=== PATIENT | female | born 1935 | race Caucasian/White ===

== ENCOUNTER 2023-08-15 11:36 | Inpatient (IN) | payer MEDICARE, BC, SELFPAY ==
[2023-08-15] VITALS (56 sets, daily range): BP systolic 76–154; BP diastolic 10–117
--- NOTE | 2023-08-15 10:32 | ED.GENMED ---
History of Present Illness
General
Chief Complaint: Seizure
Time Seen by Provider: 08/15/23 10:31
Travel History
Have you had any contact with someone who has COVID-19?: Unable to Answer
Do you have any symptoms of coronavirus? Fever > 100 degrees, chills, cough, shortness of breath, sore throat, loss of taste or smell, muscle aches, or headache?: Unable to Answer
History of Present Illness
History of Present Illness:
HPI: I spoke to EMS for history as the patient currently cannot provide any history as she is unresponsive. EMS indicates that the patient was found to have a focal seizure on the right side. She has not had seizure in years. She apparently has a
history of aneurysmal bleed in the past. EMS gave 2 mg of Ativan prior to arrival as they noted focal seizure activity on the right side. After EMS gave Ativan, she had periods of apnea.
EXAM:
GENERAL: The patient is critically ill in appearance and occasionally appears apneic
HEENT: Slightly dry oral mucosa, some sonorous respirations noted and I am concerned that she is not protecting her airway
CARDIOVASCULAR: No murmurs, normal heart rate, regular rhythm, No chest wall tenderness
PULMONARY: Intermittent apnea, mild respiratory distress, breath sounds are clear and equal
ABDOMEN: Soft with no peritoneal signs, no tenderness
NEUROLOGIC: The patient is minimally responsive, she has some response to pain to sternal rub, she keeps her eyes closed, pupils are 4 mm and reactive bilaterally, she holds the right lower extremity in flexion at the knee and the hip, there is some
myoclonic jerking activity to the right upper extremity greater than right lower extremity, the right upper extremity has increased tone
PSYCHIATRIC: The patient is currently nonverbal
EXTREMITIES: As above
SKIN: No rash, no lesions
TIME OF INITIAL ENCOUNTER: 10:25 AM
NUMBER AND COMPLEXITY OF PROBLEMS ADDRESSED AT THE ENCOUNTER
� Chronic conditions affecting care: Has CUSTOMS BROKER shunt, seizure, aneurysm
� Acute Exacerbation and/or Progression of Chronic Illness: This is an acute problem but has had less severe seizures in the past
� Differential Diagnosis includes: Breakthrough seizure, intracranial hemorrhage, hypoglycemia, UTI/sepsis
AMOUNT AND/OR COMPLEXITY OF DATA TO BE REVIEWED AND ANALYZED
� I performed an independent evaluation of and my interpretation is:
EKG: Sinus 53, leftward axis deviation, nonspecific ST abnormality
CT: CT imaging shows no acute abnormality�stable postop changes noted
X-rays: I personally reviewed chest x-ray, ET tube above the nickie appropriately positioned, aortic calcification noted, no consolidation on x-ray
Laboratory Studies: White count normal, pH 7.5/pCO2 23/PaO2 170, renal function normal, urinalysis shows no sign of infection
Other:
� Review of other/old records: I reviewed records, the patient was seen as an ER patient after generalized tonic-clonic seizure activity in t that time on Vimpat and Briviact and is known to [facility] that time in
November 2021 she was discharged home.
� Clinical information was obtained by an independent historian: I spoke to EMS upon arrival.
� Prescriptions/Medications Considered but not given:
� Further testing considered but not performed:
RISK OF COMPLICATIONS AND/OR MORBIDITY OR MORTALITY OF PATIENT MANAGEMENT
� Social determinants of health affecting care:
� Discussion with other providers: The patient was seen by Dr. Killian in the ED. He is arranging for EEG. Hospitalist for admission he is arranged for EEG. Hospitalist for admission
� Escalation of care including admission/observation vs risk of discharge considered: Upon arrival, the patient had a GCS of 6 upon arrival (1+1+4). I was concerned about her protecting her airway. Decision was made to intubate
to protect her airway in the setting of a decreased GCS. She was given IV Vimpat and Broviac.
Past History
Past History
ED Past Medical History: HTN, Seizures, Hypothyroidism, Other (Hyponatremia), Other (Brain aneurysm, with subarachnoid hemorrhage in 2002) and Other (Osteoarthritis)
ED Past Surgical History: Brain (Brain aneurysm clipping, CUSTOMS BROKER shunt on the left; bilateral craniotomies) and Cholecystectomy
Social History
Tobacco: Non-smoker
Alcohol: None
Personal:
Living: with family
Employment: Retired
Family History
Family History: Other (reviewed and Noncontributory)
Phy Exam
Physical Exam
Physical Exam:
See HPI
Course
Orders/Labs/Results
Orders:
Orders
08/15/23 10:29
Fentanyl Citrate/Pf [Sublimaze] 75 mcg IV NOW STA
08/15/23 10:30
Propofol 1,000,000 Mcg/100 ml [Diprivan] 1,000,000 mcg in 100 ml IV PER PROTOCOL
08/15/23 10:31
CT Head W/o Iv Contrast Urgent
Comment:
Reason For Exam: seizure; h/o SAH
08/15/23 10:32
CT Head & Neck Angio W/wo IV Urgent
Comment:
Reason For Exam: seizure; h/o SAH
08/15/23 10:33
Lacosamide [Vimpat] 200 mg IV NOW STA
08/15/23 10:34
CR Chest Portable - 1 View Urgent
Comment:
Reason For Exam: post intubation
Reason Study Needs to be Portable: Patient Unstable
08/15/23 10:37
Basic Metabolic Panel Urgent
Complete Blood Count/With Diff Urgent
08/15/23 10:45
EKG [Electrocardiogram (*1)] Urgent
Reason for Study: Other
Other Reason for Exam: Unresponsive
EKG- Treatment ONCE
08/15/23 10:50
Etomidate [Amidate] 40 mg .ROUTE .STK-MED ONE
Succinylcholine Chloride [Succinylcholine] 200 mg .ROUTE .STK-MED ONE
08/15/23 10:56
Straight cath- Treatment ONCE
0.9% Sodium Chloride 1000 ml [Nss] 1,000 ml IV BOLUS
08/15/23 11:00
Brivaracetam [Briviact] 100 mg IV NOW STA
Lacosamide [Vimpat] 200 mg IV NOW STA
08/15/23 11:01
Continuous EEG monitoring IP Urgent
Reason for Study: Status
08/15/23 11:19
Admit/Transfer Patient As Directed
Co-Sign Provider:
Level of Care: Inpatient admission
Assign to:: ICU
Physician / Group: Hospitalist
Diagnosis: Unresponsiveness
Reason for Hospitalization: .
Expected length of stay greater than two midnights?: Yes
ELOS- Estimated Length of Stay in days: 3
I certify the patient meets the requirements for IP care: Yes
08/15/23 11:47
Urinalysis Reflex To Culture Urgent
Date Specimen was Collected: 08/15/23
Time Specimen was Collected: 11:46
08/15/23 12:10
Consult Director Of Financial Aid [Director Of Financial Aid Consult] Routine
Consulting Provider: Sandor Roy
Was physician already notified: Yes
Reason for consult: Seizure
Consult Neurology [NEUROLOGY CONSULT] Routine
Consulting Provider: Chevy Killian
Was physician already notified: Yes
Reason for consult: Seizure
VTE Contraindication Routine
VTE Mechanical Device Contraindication: Medical Contraindication
Pharmocologic Contraindication: Treatment not tolerated
08/15/23 20:00
Brivaracetam [Briviact] 50 mg IV BID
Lacosamide [Vimpat] 200 mg IV Q12H
Abnormal Lab Results
08/15/23
10:37
MCHC 32.3 L g/dL
(33.0-37.0)
RDW 15.3 H %
(11.5-14.5)
MPV 11.7 H fL
(7.4-10.4)
Absolute Neuts (auto) 6.8 H 10^3/uL
(1.4-6.5)
Neutrophils % 79.7 H %
(42.2-75.2)
Lymphocytes % 13.8 L %
(20.5-51.1)
Chloride 108 H mmol/L
(98-107)
BUN 24 H mg/dl
(7-17)
08/15/23 10:37
08/15/23 10:37
Vital Signs
Initial and Last Documented VS:
Initial Vital Signs
Pulse Resp BP Pulse Ox
84 13 136/10 99
08/15/23 10:25 08/15/23 10:25 08/15/23 10:25 08/15/23 10:25
Last Documented Vital Signs
Temp Pulse Resp BP Pulse Ox
92.4 F L 57 14 131/72 99
08/15/23 12:31 08/15/23 12:45 08/15/23 12:45 08/15/23 12:45 08/15/23 13:13
Procedures
Intubations
Procedure completed by: De, Dr. Vicente
Method of Intubation: glidescope
Tube size (cm): 7.5
Placement confirmed by: CXR and capnography
Breath sounds after intubation: equal
Intubation complications: no complications
*Critical Care Note
Total Time (30-74mins, 75-104mins- exclusive of procedures): Not Applicable
ED Attending Note
-
Portions of this chart may have been created with voice recognition software.� Occasional wrong word or��sound alike� substitutions may have occurred due to the inherent limitations of voice recognition software.
Discharge Plan
Departure
Patient Disposition: Admit
Date of Disposition: 08/15/23
Time of Disposition: 11:17
Presentation/result/management discussed w/ accepting MD/DO: Hospitalist
Discharge Problem:
Breakthrough seizure
Interventions
Interventions:
*Risk Screen - Suicide Last Done: 08/15/23 12:00
*General Assessment Last Done: 08/15/23 11:01
*Neglect/Abuse Screening Last Done: 08/15/23 11:01
ED- Fall Risk Assessment Last Done: 08/15/23 11:01
*ED COVID-19 Vaccine History Last Done: 08/15/23 11:01
*Nursing Disposition Last Done: 08/15/23 12:00
ED- Cardiac Assessment Last Done: 08/15/23 11:01
ED- Neurological Assessment Last Done: 08/15/23 11:01
ED- Pulmonary Assessment Last Done: 08/15/23 11:01
Discharge Date and Time
Discharge Date/Time: 08/15/23 12:22
[2023-08-15] MEDS: DIPRIVAN 100 IV (10:40)
[2023-08-15] MEDS: SUBLIMAZE 75 MCG IV (10:45)
[2023-08-15] MEDS: VIMPAT 200 MG IV ×3 (10:47→19:29)
[2023-08-15 10:50] LABS: % Basophils 0.1 % (0-2); % Eosinophils 0.4 % (0-6); % Immature Granulocytes 0.2 % (0-0.5); % Lymphocytes 13.8 % (20.5-51.1); % Monocytes 5.8 % (1.7-9.3); % Neutrophils 79.7 % (42.2-75.2); Absolute Lymphocytes 1.2 10^3/uL (1.2-3.4); Absolute Monocytes 0.5 10^3/uL (0.1-0.6); Absolute Neutrophils 6.8 10^3/uL (1.4-6.5); Hematocrit 40.3 % (37.0-47.0); Mean Corp Hgb Conc. 32.3 g/dL (33.0-37.0); Mean Corpuscular Volume 93.1 fL (81.0-99.0); Mean Platelet Volume 11.7 fL (7.4-10.4); Nucleated Red Blood Cells % 0 %; Platelet Count 187 10^3/uL (130-400); Red Blood Cell Count 4.33 10^6/uL (4.20-5.40); Red Cell Dist. Width 15.3 % (11.5-14.5); White Blood Cell Count 8.5 10^3/uL (4.8-10.8)
--- NOTE | 2023-08-15 11:03 | CON.NEURO4 ---
Consultation - Neurology 4
-
CONSULTING PHYSICIAN: Justo Killian
REFERRING PHYSICIAN: ER
DICTATED BY: Justo Killian
DATE/TIME OF REQUEST: 08/15/23
DATE/TIME OF CONSULTATION: 08/15/23
Reason for Consultation: Status epilepticus
History of Present Illness:
Patient is a 88-year-old woman with a past no history of aneurysmal subarachnoid hemorrhage requiring clipping, craniotomy and MANGLE CATCHER shunt, epilepsy presented to hospital with altered mental status and right-sided focal seizure activity. History
obtained via patient's son and [id number] as well as ER physician and EMS. Patient lives with her and did not seem to be quite at her baseline over the past 2 days sometimes seeming very out of it and sleeping poorly responsive but
then sometimes coming back into her normal baseline. This morning she had a witnessed right-sided seizure activity and was given 2 mg IV lorazepam by EMS and was brought into the ED had significant lethargy, apnea and encephalopathy with still
right arm and leg myoclonic seizure activity seen. She was intubated and given dose of IV lacosamide started on propofol infusion.
Patient's son relates that after the aneurysmal subarachnoid hemorrhage which occurred around 2002 the patient had a long recovery to perhaps 60% of her previous baseline. He reports that at face value the patient seems to interact and talk
normally but would be able to be discerned that she has significant cognitive deficits after having more than 10 minutes talking with her.
Patient has been very consistent with taking antiseizure medications 25 mg brivaracetam twice a day as well as lacosamide 150 mg twice a day. Patient has not had any generalized seizures in some time and more than a year two, but there have been
short instances of jerking-like activity which can happen every couple months that the patient's family was concerned represent small focal seizures.
Patient had been on some antibiotics recently she had apparently an equivocal urinalysis but had some symptoms of urinary frequency recently. Reviewing the chart as well as per the patient's family the patient does have a history of a tendency
towards frequent urinary tract infections.
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
Surgical History: MANGLE CATCHER shunt, craniotomy and aneurysm clipping after aneurysm rupture, cholecystectomy
Family History: Non-contributory
Social History: Patient is , lives with her , no tobacco or alcohol use
Review of Symptoms:
Unable to obtain with intubation
Physical Exam:
Elderly woman, intubated, no head or neck trauma, ET tube in place, no neck masses or meningismus, heart rate regular, breath sounds present bilaterally, abdomen soft non tender, no lower extremity edema
Neurologic Examination
Mental Status: Sedated, comatose, E1V1V1
Cranial Nerves: Pupils 2 mm non reactive to light bilaterally, resting gaze midline, face grossly symmetric, corneal reflex and cough reflex intact
Motor/sensory: No movement to sternal rub or pain in any extremity
Reflexes: Diminished throughout
Coordination: Unable to assess
Gait: Unable to assess
Neuro Imaging: CT head with MANGLE CATCHER shunt in place in right lateral ventricle, encephalomalacia in bifrontal lobes and s/p craniotomy, aneurysm clip seen in basal cisterns
Impressions
1. Status epilepticus, underlying epilepsy after aneurysmal rupture and subarachnoid hemorrhage
2. 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
3. History aneurysmal rupture SAH s/p craniotomy and slipping of aneurysm, required MANGLE CATCHER shunt
4.
Recommendations:
1. Total dose 400 mg IV Lacosamide and 100 mg Brivaracetam now
2. Brivaracetam 50 mg q12hr and Lacosamide 200 mg q12hr both IV, pursue increased doses from home doses for the time being
3. Continuous EEG monitoring
4. Would check UA and urinalysis given a history of UTI's, these can precipitate seizures in those with underlying epilepsy
5. ICU level of care
6. Neurologic checks
7. Goal normotension
8. Would hold home quetiapine
Total ICU time = 60 minutes
Discussed patient care with: Patient's family, ER physician
Home Medications
-
Home Medications
docusate sodium 100 mg capsule 100 mg PO DAILY@1700 Constipation 03/26/17
metoprolol succinate 25 mg tablet,extended release 24 hr 25 mg PO DAILY@1700 Blood pressure 03/26/17
polyvinyl alcohol-povidone (PF) 1.4 %-0.6 % eye drops in a dropperette (Refresh Classic (PF)) 1 drops BOTH EYES BID dry eyes 03/26/17
quetiapine 25 mg tablet 25 mg PO HS Mental Health/Anxiety 03/26/17
trazodone 50 mg tablet 12.5 mg PO HS Mental Health/Anxiety 03/26/17
brivaracetam 25 mg tablet (Briviact) 25 mg PO BID Seizures 09/22/21
cetirizine 10 mg capsule (Zyrtec) 10 mg PO DAILY@1700 Allergies 09/22/21
lacosamide 150 mg tablet (Vimpat) 150 mg PO HS Seizures 09/22/21
melatonin 3 mg tablet 3 mg PO HS Sleep 09/22/21
amlodipine 5 mg tablet 5 mg PO DAILY Blood pressure 11/27/21
calcium carbonate 500 mg PO DAILY Supplement 11/27/21
fluticasone propionate 50 mcg/actuation nasal spray,suspension 1 spray intranasal DAILY Allergies 11/27/21
lacosamide 100 mg tablet (Vimpat) 100 mg PO DAILY Seizures 11/27/21
levothyroxine 75 mcg tablet 75 mcg PO DAILY@16 Thyroid 11/27/21
sertraline 50 mg tablet 50 mg PO DAILY Mental Health/Anxiety 11/27/21
Allergies
-
Allergies
Allergy/AdvReac Type Severity Reaction Status Date / Time
phenytoin [From Dilantin] Allergy Unknown Unknown Verified 09/22/21 10:59
ciprofloxacin [From Cipro] Allergy Unknown Verified 09/22/21 10:59
Penicillins Allergy Unknown Verified 09/22/21 10:59
vancomycin Allergy Vomiting Verified 09/22/21 10:59
raw onions Allergy sensitivity Uncoded 09/22/21 10:59
Vital Signs / Labs
-
Vital Signs and Labs:
Pulse Resp BP Pulse Ox
90 25 154/74 99
08/15/23 10:31 08/15/23 10:31 08/15/23 10:31 08/15/23 10:31
08/15/23 10:37
08/15/23 10:37
08/15/23
10:37
MCHC 32.3 L
RDW 15.3 H
MPV 11.7 H
Absolute Neuts (auto) 6.8 H
Neutrophils % 79.7 H
Lymphocytes % 13.8 L
Chloride 108 H
BUN 24 H
[2023-08-15 11:04] LABS: Blood Urea Nitrogen 24 mg/dl (7-17); Calcium 8.8 mg/dl (8.4-10.2); Carbon Dioxide 23 mmol/L (22-30); Chloride 108 mmol/L (98-107); Glucose 99 mg/dl (70-99); Sodium 139 mmol/L (135-145); eGFR > 60.00
[2023-08-15] MEDS: NSS 1000 IV ×2 (11:17→12:39)
[2023-08-15] MEDS: BRIVIACT 100 MG IV (11:18)
--- NOTE | 2023-08-15 11:18 | HPS.HSE ---
Family Physician
-
Family Physician:
Chief Complaint
-
Unresponsiveness with seizure
History of Present Illness
88-year-old female had seizure at home. EMT was called and reported of right-sided seizure noted. In the ER, she was minimally responsive or unresponsive. ER doctor intubated the patient for airway protection. Patient was given lorazepam. Stat
scan of the head showed no acute abnormalities no history of fever.. Or acute illness at home. Caregiver reported that she noticed decline in last 2 days with ambulation. Also patient tends to have a swallowing problem when she is not feeling
well.
Medical History
Past Medical History
Past Medical History: Reports Other (Thyroid disease, seizure, hypertension, history of brain aneurysm status post shunt, arthritis, history of stroke, history of DVT)
Past Surgical History: Reports Other (No recent major surgery)
Social History
Unable to obtain full social history at this time due to: Patient Intubation
Family History
Family History: Not pertinent
Allergies / Home Medications
Allergies reflects when Allergies were last updated in [facility].
Home Medications with original date entered in [facility]
Allergy/Medication List:
Allergies
Allergy/AdvReac Type Severity Reaction Status Date / Time
phenytoin [From Dilantin] Allergy Unknown Unknown Verified 09/22/21 10:59
ciprofloxacin [From Cipro] Allergy Unknown Verified 09/22/21 10:59
Penicillins Allergy Unknown Verified 09/22/21 10:59
vancomycin Allergy Vomiting Verified 09/22/21 10:59
raw onions Allergy sensitivity Uncoded 09/22/21 10:59
Home Medications
docusate sodium 100 mg capsule 100 mg PO BID Constipation 03/26/17
metoprolol succinate 25 mg tablet,extended release 24 hr 25 mg PO QPM Blood pressure 03/26/17
trazodone 50 mg tablet 12.5 mg PO HS Mental Health/Anxiety 03/26/17
brivaracetam 25 mg tablet (Briviact) 25 mg PO BID Seizures 09/22/21
cetirizine 10 mg capsule (Zyrtec) 10 mg PO QPM Allergies 09/22/21
lacosamide 150 mg tablet (Vimpat) 150 mg PO HS Seizures 09/22/21
melatonin 3 mg tablet 3 mg PO HS Sleep 09/22/21
amlodipine 5 mg tablet 5 mg PO DAILY Blood pressure 11/27/21
calcium carbonate 500 mg PO DAILY Supplement 11/27/21
fluticasone propionate 50 mcg/actuation nasal spray,suspension 1 spray intranasal BID Allergies 11/27/21
lacosamide 100 mg tablet (Vimpat) 100 mg PO DAILY Seizures 11/27/21
acetaminophen 325 mg tablet (Tylenol) 650 mg PO Q6HPRN PRN mild pain 08/15/23
cefuroxime axetil 250 mg tablet 250 mg PO BID 08/15/23
conjugated estrogens 0.625 mg/gram vaginal cream (Premarin) 1 applic vaginal MOTH 08/15/23
latanoprost 0.005 % eye drops 1 drp BOTH EYES HS 08/15/23
levothyroxine 50 mcg tablet 50 mcg PO QPM 08/15/23
lorazepam 0.5 mg tablet 0.5 mg PO DAILYPRN PRN seizures 08/15/23
methenamine hippurate 1 gram tablet 1 g PO BID 08/15/23
sertraline 25 mg tablet 25 mg PO DAILY 08/15/23
Review of Systems
-
Unable to obtain full review of systems at this time due to: Patient Intubation
Physical Exam
Vital Signs
Vital Signs
Pulse Resp BP Pulse Ox
63 15 105/68 100
08/15/23 11:15 08/15/23 11:15 08/15/23 11:13 08/15/23 11:15
Physical Exam
General: Intubated
HEENT: Atraumatic
Respiratory: Clear; No Wheezes
Cardiac: S1/S2
GI: Soft and Non Distended
Genito-urinary: No Bloody Urine or Vaughan
Musculoskeletal: No Clubbing, No Cyanosis and No Edema
Skin: No Jaundice
Neuro: Sedated
Psych: No Agitated
Laboratory Results
-
08/15/23 10:37
08/15/23 10:37
Laboratory Results
Total Bilirubin Cancelled 08/15/23 10:37
AST Cancelled 08/15/23 10:37
ALT Cancelled 08/15/23 10:37
Alkaline Phosphatase Cancelled 08/15/23 10:37
Impression/Plan
-
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
#Acute encephalopathy due to seizure /unresponsiveness
Patient was intubated for airway protection in the emergency room. No documented hypoxia or respiratory distress
Admit the patient to ICU
No evidence of acute infection with lack of fever or leukocytosis. No history of headaches
Scan of the head no acute abnormalities
ABG and chest x-ray
Continue to manage vent setting and wean as possible
Cardiac monitoring
Supportive care with IV fluid, aspiration precautions
Discussed with neurologist, will continue with lacosamide and brivaracetam, add as needed lorazepam
For now to do continuous electroencephalogram
Discussed with photographic platemaker and neurologist
Appreciate help
# Hypothermia, likely combination of medication induced and encephalopathy
Patient has had history of hypothermia in the past
#Essential hypertension
Keep normotensive. Add as needed hydralazine
#Hypothyroidism
- No changes intended
# GI prophylaxis & DVT prophylaxis
Total time spent to see the patient, examine the patient on the floor, review data and lab results, discuss treatment plan with ER doctor, consultants, family, nursing staff around 75 minutes
--- NOTE | 2023-08-15 12:10 | CON.INTV ---
Consultation
Consultation Request
Date/Time Consultation Requested: 08/15/2023
Date/Time Consultation Performed: 08/15/2023
Performing Provider: Dr. Sandor Cary
Reason for Consultation: Hypercapnic respiratory failure-seizures
Medical History
-
History of Present Illness:
88-year-old woman who came to the emergency room intubated after having a witnessed seizure per EMS. Unable to provide history. Records reviewed. Patient currently arrives to the ICU intubated on mechanical ventilation. Sedated.
Record reviewed patient has history of SPLITTER TENDER shunt with prior seizures in the past.
Patient received antiepileptic drugs IV in the emergency room.
Upon arrival to the critical care unit she is sedated on propofol. Occasionally moving extremities.
To my exam no evidence for active seizures.
Prior records were reviewed. Last time seen in our hospital in 2021.
Will discuss with family when available
Past Medical History
Past Medical History: Other (See assessment and plan section)
Social History
Tobacco: Non-smoker
Alcohol: None
Personal:
Employment: Retired
Family History
Family History: Unable to Obtain
Allergies / Home Medications
Allergies
Allergy/AdvReac Type Severity Reaction Status Date / Time
phenytoin [From Dilantin] Allergy Unknown Unknown Verified 09/22/21 10:59
ciprofloxacin [From Cipro] Allergy Unknown Verified 09/22/21 10:59
Penicillins Allergy Unknown Verified 09/22/21 10:59
vancomycin Allergy Vomiting Verified 09/22/21 10:59
raw onions Allergy sensitivity Uncoded 09/22/21 10:59
Home Medications
�Medication �Instructions �Recorded �Confirmed �Last Taken �Type
docusate sodium 100 mg capsule 100 mg PO BID Constipation 03/26/17 08/15/23 08/14/23 History
metoprolol succinate 25 mg 25 mg PO QPM Blood pressure 03/26/17 08/15/23 08/14/23 History
tablet,extended release 24 hr
trazodone 50 mg tablet 12.5 mg PO HS Mental Health/Anxiety 03/26/17 08/15/23 08/14/23 History
brivaracetam 25 mg tablet 25 mg PO BID Seizures 09/22/21 08/15/23 08/14/23 History
(Briviact)
cetirizine 10 mg capsule (Zyrtec) 10 mg PO QPM Allergies 09/22/21 08/15/23 08/14/23 History
lacosamide 150 mg tablet (Vimpat) 150 mg PO HS Seizures 09/22/21 08/15/23 08/14/23 History
melatonin 3 mg tablet 3 mg PO HS Sleep 09/22/21 08/15/23 08/14/23 History
amlodipine 5 mg tablet 5 mg PO DAILY Blood pressure 11/27/21 08/15/23 08/14/23 History
calcium carbonate 500 mg PO DAILY Supplement 11/27/21 08/15/23 08/14/23 History
fluticasone propionate 50 1 spray intranasal BID Allergies 11/27/21 08/15/23 08/14/23 History
mcg/actuation nasal
spray,suspension
lacosamide 100 mg tablet (Vimpat) 100 mg PO DAILY Seizures 11/27/21 08/15/23 08/14/23 History
acetaminophen 325 mg tablet 650 mg PO Q6HPRN PRN mild pain 08/15/23 08/15/23 08/14/23 History
(Tylenol)
cefuroxime axetil 250 mg tablet 250 mg PO BID 08/15/23 08/15/23 08/14/23 History
conjugated estrogens 0.625 mg/gram 1 applic vaginal MOTH 08/15/23 08/15/23 08/12/23 History
vaginal cream (Premarin)
latanoprost 0.005 % eye drops 1 drp BOTH EYES HS 08/15/23 08/15/23 08/14/23 History
levothyroxine 50 mcg tablet 50 mcg PO QPM 08/15/23 08/15/23 08/14/23 History
lorazepam 0.5 mg tablet 0.5 mg PO DAILYPRN PRN seizures 08/15/23 08/15/23 Unknown History
methenamine hippurate 1 gram tablet 1 g PO BID 08/15/23 08/15/23 08/14/23 History
sertraline 25 mg tablet 25 mg PO DAILY 08/15/23 08/15/23 08/14/23 History
Review of Systems
-
Unable to Obtain full review of systems at this time due to: Acuity and Patient Intubation
Vitals / Labs / Diagnostic Testing
Vital Signs
Pulse Resp BP Pulse Ox
63 15 105/68 100
08/15/23 11:15 08/15/23 11:15 08/15/23 11:13 08/15/23 11:15
Lab Data
08/15/23 10:37
08/15/23 10:37
Diagnostic Testing:
Physical Exam
-
HEENT: Normocephalic and Other (ET tube in place,)
Cardiovascular: S1/S2
Respiratory: Clear
GI: Soft and Non Distended
Neurology: Other (Bilateral small pupils. Nonreactive at this point. Occasionally moving extremities on sedation. No nystagmus.) and Other (Sedated, unresponsive, neck is supple.)
Skin: Warm
General: Respiratory Distress (n)
Assessment
-
Abrupt onset mental status changes/? Witnessed seizure by EMS per records.
Respiratory failure for airway protection: Intubated and on mechanical ventilation.
CT head without contrast 08/15/2023: No acute abnormalities. Stable postoperative changes including bilateral frontotemporal craniotomies with underlying volume loss.
Chest x-ray 08/15/2023: No acute abnormalities.
Conditions present prior to admission:
Prior records:
Hypertension
Seizure disorder: on Brivaracetam
Hypothyroidism
History of brain aneurysm with subarachnoid hemorrhage 2002
Osteoarthritis
Brain aneurysm status post clipping
SPLITTER TENDER shunt
Bilateral craniotomies
Cholecystectomy
Assessment and plan:
Critically ill, intubated and on mechanical ventilation. ? Breakthrough seizure. No history available at this point.
So far no evidence for acute neurological event. CT head negative for bleeding. Prior postcraniotomy changes.
No evidence for infection
Will discuss with family past history. Unclear whether patient was taking her medications or there was any symptoms preceding current event
-
Neurology has been consulted: IV antiepileptic drugs have been given
EEG later today.
-
Monitor for fevers. No leukocytosis.
Hemodynamically stable
Cultures were sent we will follow
Hold any antibiotic
-
Mechanical ventilation settings reviewed
Pulmonary mechanics acceptable peak pressure 17.
FiO2 40%/tidal volume 400/14/+5
Chest x-ray without infiltrate
ET tube without secretion
Obtain ABG and adjust mechanical ventilation as necessary
Will continue support until seizures are controlled.
If no further seizures then will attempt a spontaneous breathing trial later today.
-
Sedation with propofol-minimize.
Patient occasionally moving extremities.
Fentanyl as needed
-
Patient on sinus bradycardia. Not hypotensive.
Check TSH
Hold oral antihypertensive for now. On Betablockers
Okay to restart sertraline and trazodone as she was taking in the outpatient setting once NG tube is placed
-
N.p.o. overnight
Head of the bed elevation
Orogastric tube.
-
IV fluids for maintenance-normal saline at 80 cc an hour.
-
Glycemic control per protocol blood sugar 140-180. Insulin as needed
-
DVT prophylaxis with subcu Lovenox
Protonix for GI prophylaxis
-
Critical care statement: A total of 38 minutes of critical care time was provided for this patient today. This includes management of unstable vital signs, evaluation of the patient at bedside, reviewing the patient's pertinent medical records
including ventilator settings, arterial blood gases, radiographs, microbiology, laboratory evaluations and discussion with primary team, critical care nursing, and respiratory therapy.
[2023-08-15 12:15] LABS: Urine Albumin Trace (Neg - Trace); Urine Bilirubin Negative (Negative); Urine Character Clear (Clear); Urine Color Yellow; Urine Glucose Negative (Negative); Urine Ketone Negative (Negative); Urine Leukocyte Negative (Negative); Urine Nitrite Negative (Negative); Urine Occult Blood Negative (Negative); Urine Specific Gravity 1.005 (<1.030); Urine Urobilinogen Negative (Neg - 1+)
[2023-08-15 12:50] LABS: B.E. -2.4 mmol/L; HCO3 18.8 mmol/L (21-28); O2 Saturation % 99.7 % (94-98); PCO2 23 mmHg (32-35); PO2 170 mmHg (83-108); pH 7.52 (7.35-7.45)
--- NOTE | 2023-08-15 13:33 | CM ---
CM following re: discharge planning.
Reviewed pt's chart, met with pt. 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
Pt is an 88 year old female, admitted with primary dx of Seizure. Pt intubated on the field by EMS, admitted to ICU intubate and sedated. Per son, pt lives with in a 2SH, 2 steps to enter, has 4 supportive children and has 24/7 caregiver
services due to impaired memory and caregiver services provided by [facility]. Pt's son described the pt as independent with functional ability, does not use any mobile devices and has impaired short term memory. Pt's son expressed his desire
that pt will return back home with caregiver services and family support.
PCP: Johana Bullock
Pharmacy: [facility].
D/C plan: uncertain at this time and will depend on pt's progress.
CM will follow with discharge plan updates as hospitalization progresses
[2023-08-15 13:48] LABS: INR 0.98
[2023-08-15 13:49] LABS: APTT 34.6 Sec (23.4-35.0)
--- NOTE | 2023-08-15 14:00 | PTCARENOTE ---
PT received via stretcher from ED, PT unresponsive, responsive to deep pain, pupils 1 pinpoint, non reactive, PT tense with movement or care, NSR 1st degree AV block, no edema, +pulses, cool to the touch, unable to obtain temp, placed rectal probe,
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
infiltrated upon arrival to ICU, removed and pressure dressing applied, unable to find a new IV site, received order to place IV in foot, # 20 INT placed right ankle, family at bedside updated
[2023-08-15 14:25] LABS: TSH 4.62 uIU/ml (0.47-4.68)
--- NOTE | 2023-08-15 14:42 | PTCARENOTE ---
Assessment of PT, Pupils 2 sluggish, family at bedside and updated, Propofol decreased to 10 mcg/min, attempting to wean sedation off for possible intubation
--- NOTE | 2023-08-15 15:18 | PTCARENOTE ---
PT with more movements noted, not follow commands at this time, Propofol decreased to 5 mcg/min, will continue to wean
--- NOTE | 2023-08-15 15:30 | PTCARENOTE ---
Propofol infusion off, PT did squeeze this nurse's hand, unsure if it was following my command or involuntary, unable to illicit response second time
--- NOTE | 2023-08-15 15:56 | PTCARENOTE ---
PT failed wean trial, placed back on 10 mcg/min Propofol, PT remains unresponsive, withdrawal to painful stimuli, son remains at bedside
[2023-08-15] MEDS: LOVENOX 40 MG SC (17:25)
--- NOTE | 2023-08-15 17:44 | PTCARENOTE ---
Assessment remains unchanged, son at bedside, respiratory culture obtained and sent for culture, PT rectal temp @ 96.8
[2023-08-15] MEDS: BRIVIACT 50 MG IV (19:27)
--- NOTE | 2023-08-15 20:00 | PTCARENOTE ---
on assessment pt moving all extremities, rass -2, pt responds to deep suctioning, +gag, impaired corneal, SR, 7.5 EET, thick mcdonough secretions, lungs diminished and course, NPO, purwick in place, repositioned q2h, SON called and was updated, see work
list
[2023-08-16] VITALS (55 sets, daily range): BP systolic 90–173; BP diastolic 44–135
--- NOTE | 2023-08-16 | PTCARENOTE ---
pt got a more restless, increased propofol per orders, no others changes at this time, pt was suctions and repositioned q2h.
[2023-08-16] MEDS: NSS 1000 IV (00:32)
[2023-08-16] MEDS: DIPRIVAN 100 IV (02:37)
[2023-08-16] MEDS: NSS 500 IV (03:57)
--- NOTE | 2023-08-16 04:00 | PTCARENOTE ---
Overnight pt was restless and setting off the vent/coughing, increased prop gtt per orders, not much urine noted on pad or in purwick, ICU PEDICURIST made aware and fluids ordered, no other changes noted, repositioned q2h.
[2023-08-16 04:44] LABS: B.E. -3.5 mmol/L; HCO3 19.9 mmol/L (21-28); O2 Saturation % 99.7 % (94-98); PCO2 30 mmHg (32-35); PO2 110 mmHg (83-108); pH 7.43 (7.35-7.45)
[2023-08-16 04:44] LABS: Hematocrit 32.7 % (37.0-47.0); Hemoglobin 11.2 g/dL (12.0-16.0); Mean Corp Hgb Conc. 34.3 g/dL (33.0-37.0); Mean Corpuscular Hgb 30.4 pg (27.0-31.0); Mean Corpuscular Volume 88.6 fL (81.0-99.0); Mean Platelet Volume 11.4 fL (7.4-10.4); Platelet Count 172 10^3/uL (130-400); Red Blood Cell Count 3.69 10^6/uL (4.20-5.40); Red Cell Dist. Width 15.5 % (11.5-14.5)
[2023-08-16 04:46] LABS: O2 Therapy VENT
[2023-08-16 05:06] LABS: Blood Urea Nitrogen 19 mg/dl (7-17); Carbon Dioxide 20 mmol/L (22-30); Chloride 114 mmol/L (98-107); Glucose 84 mg/dl (70-99); Potassium 3.8 mmol/L (3.5-5.1); Sodium 139 mmol/L (135-145); eGFR 54.87
--- NOTE | 2023-08-16 07:48 | EEGC.RPT ---
Continuous EEG Report
Recording
Start Date of Data Reviewed: 08/15/23
Start Time of Data Reviewed: 13:25
End Date of Data Reviewed: 08/16/23
End Time of Data Reviewed: 07:00
Type of EEG: Continuous
Study Sequence: Continuation of ongoing Study
Electrocardiogram: Unremarkable
Report
24 HOUR CONTINUOUS EEG REPORT
EEG INTERPRETATION:
Abnormal EEG showing diffuse slowing as well as focal slowing on the left frontal lobe which can indicate structural abnormality in that area. No seizures seen.
CLINICAL CORRELATION:
Moderate diffuse slowing non-specific indicating cerebral dysfunction, left frontal lobe focal slowing most likely attributable to history of previous brain injury from aneurysmal rupture given findings of bifrontal encephalomalacia on CT head.
Clinical correlation is advised.
METHODS:
A 21 channel digitized electroencephalogram (EEG) was performed at the bedside in the intensive care unit.� The 10/20 international system of electrode placement was used.� ECG was monitored.� Video was recorded. Study lasted 17 hours 35 minutes
ELECTROENCEPHALOGRAPHER IMPRESSION(S):
Quality
Good
Background
Mixed medium amplitude dleta and theta frequencies
No normal posterior dominant rhythm seen
Asymmetry of background with focal slowing in left frontal region
Sleep
Drowsiness demonstrated by attenuation of the background rhythm
ECG:
Normal sinus rhythm
Abnormal EEG activity:
No seizures seen, diffuse slowing is seen.
[2023-08-16] MEDS: NSS (PRESERVATIVE FREE) 10 ML IV (07:57)
[2023-08-16] MEDS: BRIVIACT 50 MG IV ×2 (07:57→19:34)
[2023-08-16] MEDS: PROTONIX IV 40 MG IV (07:57)
[2023-08-16] MEDS: VIMPAT 200 MG IV ×2 (07:58→19:34)
--- NOTE | 2023-08-16 08:16 | W.PN.HOSP.TC ---
Today's Communication/Plan
-
.
Supportive care
Ant-seizure medications, continue
Hope to extubate today
Assessment / Plan
Assessment / Plan
Physical Exam
General: Intubated
HEENT: Atraumatic
Respiratory: Clear; No Wheezes
Cardiac: S1/S2
GI: Soft and Non Distended
Genito-urinary: No Bloody Urine or Vaughan
Musculoskeletal: No Clubbing, No Cyanosis and No Edema
Skin: No Jaundice
Neuro: Sedated
Psych: No Agitated
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
#Acute encephalopathy due to seizure /unresponsiveness
Patient was intubated for airway protection in the emergency room. No documented hypoxia or respiratory distress
EEG is resulted and with 24 hours monitoring, no seizure activity
Hopefully can extubate today
Supportive care with IV fluid, aspiration precautions
Normal TSH
ABG this morning 7.4/30/110 on then vent support
Continue with lacosamide and brivaracetam, add as needed lorazepam
Appreciate help
# Hypothermia, likely combination of medication induced and encephalopathy
Patient has had history of hypothermia in the past
#Essential hypertension
Keep normotensive. Add as needed hydralazine
#Hypothyroidism
- No changes intended
# GI prophylaxis & DVT prophylaxis
Total time spent to see the patient, examine the patient on the floor, review data and lab results, discuss treatment plan with patient, nursing staff around 55 minutes
Anticipated Discharge: > 48 hours
Subjective/Interval History
-
Date of Service: August 16, 2023
Afebrile
No hypotension noted
Objective Data
-
Labs:
Laboratory Results
06/14/24 06/14/24
04:13 04:38
WBC 8.0
Hgb 11.2 L
Hct 32.7 L
Plt Count 172
HCO3 19.9 L
Sodium 139
Potassium 3.8
Chloride 114 H
Carbon Dioxide 20 L
BUN 19 H
Creatinine 1.0
Glucose 84
Calcium 8.0 L
Vital Signs:
Vital Signs
Temp Pulse Resp BP Pulse Ox
97.1 F 78 13 127/55 98
08/16/23 07:25 08/16/23 07:50 08/16/23 07:50 08/16/23 06:15 08/16/23 07:50
I&O
08/15/23 08/16/23 08/17/23
06:59 06:59 06:59
Intake Total 6.1 / 5.0 88.9 / 88.9
Output Total 400 / 400
Balance 1626.1 / 1715.0 88.9 / 88.9
--- NOTE | 2023-08-16 08:46 | W.PN.NEURO.1 ---
Today's Communication / Plan
-
-Would continue continuous EEG for today and tonight
-Continue current doses of Lacosamide and Brivaracetam
-Discussed with family that mental status recovery is hard to predict after status epilepticus, can sometimes be prolonged
-Wean sedation and extubate as able
ICU time = 35 minutes
Will follow
Neuro Assessment/Plan
Assessment
88-year-old woman with a past ministry of ruptured aneurysmal subarachnoid hemorrhage with craniotomy clipping and EVENTS TRAFFIC CONTROLLER shunt, subsequent epilepsy presenting to hospital with prolonged seizure activity right arm and leg clonic movements most likely
representing status epilepticus. She had had alteration in mentation for approximately 2 days prior to admission had had recent antibiotic treatment for equivocal UTI but did have symptoms of dysuria and per patient's son a somewhat contaminated
urinalysis.
Continuous EEG monitoring since starting is likely not shown further seizure activity
CT head noncontrast showed chronic changes from the aneurysmal rupture, EVENTS TRAFFIC CONTROLLER shunt and clipping
Patient does seem to have still some occasional small focal seizures at baseline so does not appear to have completely controlled epilepsy at baseline these can happen every couple of months, has not had large seizure event in a couple of years.
She is maintained on brivaracetam and lacosamide for home seizure medications. She is very compliant with seizure medications. Son reported that after couple of years she returned around 67% of her previous baseline after the aneurysmal
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
Subjective/Objective
Subjective Data
Date of Service: August 16, 2023
No acute events, no seizures since starting on continuos EEG, remains intubated, getting SBT, patient's son and at bedside
Objective Data
Vital Signs
Temp Pulse Resp BP Pulse Ox
97.1 F 78 13 127/55 98
08/16/23 07:25 08/16/23 07:50 08/16/23 07:50 08/16/23 06:15 08/16/23 07:50
Lab Results
08/16/23 04:13
08/16/23 04:13
PT 13.0 Sec (11.4-14.6) 08/15/23 13:05
INR 0.98 08/15/23 13:05
APTT 34.6 Sec (23.4-35.0) 08/15/23 13:05
Sodium 139 mmol/L (135-145) 08/16/23 04:13
Potassium 3.8 mmol/L (3.5-5.1) 08/16/23 04:13
BUN 19 mg/dl (7-17) H 08/16/23 04:13
Glucose 84 mg/dl (70-99) 08/16/23 04:13
Calcium 8.0 mg/dl (8.4-10.2) L 08/16/23 04:13
Patient Allergies
phenytoin [From Dilantin] Allergy (Unknown, Verified 09/22/21 10:59)
Unknown
ciprofloxacin [From Cipro] Allergy (Verified 09/22/21 10:59)
Unknown
Penicillins Allergy (Verified 09/22/21 10:59)
Unknown
vancomycin Allergy (Verified 09/22/21 10:59)
Vomiting
raw onions Allergy (Uncoded 09/22/21 10:59)
sensitivity
Review of Systems
-
Unable to obtain full review of systems at this time due to: Patient Intubation and Lethargy
Physical Exam
-
General: Intubated and Appears Stated Age
Eyes: No Ptosis
HEENT: Normocephalic, Atraumatic and Other (ET tube )
Neck: No Bruits Bilaterally
Respiratory: Negative Wheezes
Cardiac: Regular Rhythm and No Murmur
GI: Soft and Non-tender
Skin: Warm and Dry; Negative Rash
Extended Neurological Exam
Attention Span & Concentration: Other (Moving spontaneously mostly in legs bilaterally, no eye opening, no following commands of showing thumbs up or opening eyes)
Memory: Unable to Assess
Tremor: Hand Tremor Absent
Involuntary Movement: None
Speech: Unable to Assess
Cranial Nerve II: Left Eye: Pupillary Reactivity Unremarkable and Pupillary Size Unremarkable
Cranial Nerve II: Right Eye: Pupillary Reactivity Unremarkable and Pupillary Size Unremarkable
Cranial Nerves III, IV, : Extraocular Movement: Extraocular Movement Full in all Directions
Cranial Nerve VII: Facial Symmetry: Normal Facial Symmetry
Data Reviewed
-
CT-A: Report Reviewed and Image Reviewed
CT Head: Report Reviewed and Image Reviewed
EEG: Report Reviewed
[2023-08-16 08:54] LABS: B.E. -4.7 mmol/L; HCO3 19.4 mmol/L (21-28); O2 Saturation % 99.8 % (94-98); PCO2 32 mmHg (32-35); PO2 123 mmHg (83-108); pH 7.39 (7.35-7.45)
--- NOTE | 2023-08-16 10:23 | PTCARENOTE ---
Extubated at 0914. 95% on 4L NC
Pt's eyes open. not following commands. IV Ofirmev requested for pain d/t pt very restless in bed and frequently shifting. Pt's son states she had been complaining of back pain recently.
--- NOTE | 2023-08-16 11:10 | W.PN.INTV ---
Today's Communication / Plan
Recommendations
Extubate
Supplemental oxygen as needed
N.p.o.
Head of the bed elevation
Continue antiepileptic drugs
Avoid all other sedatives
Discontinue IV fluids
Repeat labs later.
Assessment
-
Abrupt onset mental status changes/? Witnessed seizure/status epilepticus by EMS per records.
Respiratory failure for airway protection: Intubated and on mechanical ventilation.
CT head without contrast 08/15/2023: No acute abnormalities. Stable postoperative changes including bilateral frontotemporal craniotomies with underlying volume loss.
Chest x-ray 08/15/2023: No acute abnormalities.
Conditions present prior to admission:
Prior records:
Hypertension
Seizure disorder: on Brivaracetam
Hypothyroidism
History of brain aneurysm with subarachnoid hemorrhage 2002
Osteoarthritis
Brain aneurysm status post clipping
SCIENCE TUTOR shunt
Bilateral craniotomies
Cholecystectomy
Assessment and plan:
Critically ill, intubated and on mechanical ventilation. ? Breakthrough seizure. No history available at this point.
So far no evidence for acute neurological event. CT head negative for bleeding. Prior postcraniotomy changes.
No evidence for infection
Apparently patient has history of prior breakthrough seizures. Discussed with son and caregiver at the bedside.
-
Neurology has been consulted: Continue antiepileptic drugs.
EEG without active seizures.Diffuse slowing 08/16/2023
-
Monitor for fevers. No leukocytosis.
Hemodynamically stable
Cultures were sent we will follow
Hold any antibiotic
-
Mechanical ventilation settings reviewed
Spontaneous breathing trial supervised by me.
After 1 hour and a half, ABG performed.
ABG appears adequate.
Vital signs stable.
Patient has a cough effort. Not following commands.
Extubated 08/16/2023.
No stridor on exam
Try to avoid any sedation
Suspect degree of toxic metabolic encephalopathy/delirium
-
All sedation has been discontinued
-
Hypothermia/bradycardia resolved.
Normal TSH
Eventually restart beta-blockers per
Restart outpatient medications when able.
-
Continue n.p.o. for now
head of the bed elevated
Head of the bed elevation
Hopefully mental status improve enough that the patient can eat.
-
IV fl discontinue normal saline.
Will readdress in the afternoon.
Patient has a nongap metabolic acidosis due to normal saline infusion per
-
Glycemic control per protocol blood sugar 140-180. Insulin as needed
-
DVT prophylaxis with subcu Lovenox
Protonix for GI prophylaxis
-
Dr. Cary updated and son at the bedside 08/16/2023.
-
Critical care statement: A total of 31minutes of critical care time was provided for this patient today. This includes management of unstable vital signs, evaluation of the patient at bedside, reviewing the patient's pertinent medical records
including ventilator settings, arterial blood gases, radiographs, microbiology, laboratory evaluations and discussion with primary team, critical care nursing, and respiratory therapy.
Subjective Dataa
Subjective Data
Date of Service:
Date of Service: August 16, 2023
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
Subjective:
On mechanical ventilation, unable to provide history.
Still not following commands.
Has a cough effort
Restless of sedation. Moving 4 extremities.
Hemodynamically stable
Review of Systems
General: Other (Unable to provide due to change in mental status)
Objective Data
Data Reviewed
Vital Signs / I&O / Oxygen:
Vital Signs
Temp Pulse Resp BP Pulse Ox
97.1 F 78 13 127/55 94
08/16/23 11:00 08/16/23 08:38 08/16/23 08:38 08/16/23 06:15 08/16/23 09:19
Intake and Output
08/15/23 08/16/23 08/17/23
06:59 06:59 06:59
Intake Total 2026.1 / 2115.0 328.9 / 328.9
Output Total 400 / 400
Balance 1626.1 / 1715.0 328.9 / 328.9
SaO2 [A/C] 99
SaO2 94
Nasal Cannula flow liters per 4
minute
Physical Exam
General: Respiratory Distress (n) and Comfortable
HEENT: Normocephalic
Cardiovascular: S1-S2 and Regular Rhythm
Respiratory: Clear and Wheeze (n)
GI: Soft and Non Distended
Neurology: Other (Open eyes spontaneously. Not following commands. Moving 4 extremities.)
Skin: Warm
Labs/Micro/Reports
Lab Data
08/16/23 04:13
08/16/23 04:13
Laboratory Results
08/15/23 08/15/23 08/16/23
12:42 13:05 04:38
PT 13.0
INR 0.98
APTT 34.6
pH 7.52 H 7.43
pCO2 23 L 30 L
pO2 170 H 110 H
HCO3 18.8 L 19.9 L
O2 Delivery Level Vent
08/16/23
08:41
PT
INR
APTT
pH 7.39
pCO2 32
pO2 123 H
HCO3 19.4 L
O2 Delivery Level
Microbiology
08/15/23 17:48 Endotracheal Gram Stain - Preliminary
--- NOTE | 2023-08-16 11:50 | CM ---
CM following re: discharge planning.
Discussed in rounds, reviewed pt's chart, met with pt. Per rounds meeting, pt extubated this morning to 4L NC of O2, continue supportive care.
PT and OT will evaluate the pt to determine a level of care at discharge.
Pt lives with in a 2SH, 2 steps to enter, has 4 supportive children and has 24/7 caregiver services due to impaired memory and caregiver services provided by [facility], independent with functional ability.
D/C plan: most likely home with VN services, resumptions of 24/7 caregiver services and family support.
CM will follow with discharge plan updates as hospitalization progresses
[2023-08-16] MEDS: OFIRMEV 100 IV (11:54)
--- NOTE | 2023-08-16 13:28 | PTCARENOTE ---
Pt more alert. Tracking, following simple commands. Nonverbal.
Sinus rhythm with 1st degree av block. SpO2 100% on 4L NC. Lungs diminished.
Purewick draining clear yellow urine with good urine output.
Bed alarm on. Family at bedside. All other assessments unchanged.
[2023-08-16 15:47] LABS: Blood Urea Nitrogen 16 mg/dl (7-17); Calcium 8.5 mg/dl (8.4-10.2); Carbon Dioxide 21 mmol/L (22-30); Chloride 115 mmol/L (98-107); Glucose 89 mg/dl (70-99); Magnesium 1.8 mg/dl (1.6-2.3); Phosphorus 3.8 mg/dl (2.5-4.5); Sodium 144 mmol/L (135-145); eGFR > 60.00
[2023-08-16 15:53] LABS: Potassium 4.1 mmol/L (3.5-5.1)
[2023-08-16] MEDS: TYLENOL/FEVERALL 650 MG RECTAL (16:45)
[2023-08-16] MEDS: D5/0.45%NSS with KCL 10 MEQ 1000 IV (17:01)
--- NOTE | 2023-08-16 17:10 | PTCARENOTE ---
Pt alert and confused. After getting bathed, pt became agitated and trying to get OOB. Bed alarm on. RN sitting at bedside at this time. Medsitter requested. SpO2 95% on room air. All other assessments unchanged.
[2023-08-16] MEDS: ATIVAN 1 MG IV (18:01)
[2023-08-16] MEDS: NSS (PRESERVATIVE FREE) 0.5 ML IV (18:02)
[2023-08-16] MEDS: LOVENOX 40 MG SC (18:18)
--- NOTE | 2023-08-16 18:28 | PTCARENOTE ---
Pt became increasingly agitated. Attempting to kick staff. Saying 'I need to get of here'. Pulling on EEG wires and IV. MD notified. Restraints placed per order. PRN Ativan given for agitation. PCT sitting with pt at this time.
--- NOTE | 2023-08-16 20:20 | W.PN.UPDATE ---
Addendum entered and electronically signed by Dinah Post DO 08/17/23 07:14:
Reviewed cEEG through 7am which was unchanged, showed no clear electrographic seizure.
Original Note:
Update Note
Progress Note Update
Reviewed cEEG through 8:10pm which was unchanged from previous with diffuse and focal slowing; no clear seizures noted. Will c/t follow.
--- NOTE | 2023-08-16 20:30 | PTCARENOTE ---
rec'd patient. assessment as documented. nonverbal at this time/ b/l soft wrist restraints in place, pt restless and attempting to get oob. 1:1 sitter in room. cont. EEG in place. SR on monitor w/ first degree HB. on 2L NC, no resp distress noted.
purewick replaced, CHG bath provided. IVF infusing. safe environemnt maintained, care ongoing.
[2023-08-17] VITALS (24 sets, daily range): BP systolic 85–167; BP diastolic 37–84
[2023-08-17] MEDS: ATIVAN 1 MG IV ×2 (00:10→05:20)
--- NOTE | 2023-08-17 00:23 | PTCARENOTE ---
pt restless/agitated, PRN ativan given. 1:1 sitter remains at bedside. otherwise assessment unchanged at this time. care ongoing.
[2023-08-17] MEDS: D5/0.45%NSS with KCL 10 MEQ 1000 IV ×2 (05:06→18:04)
[2023-08-17] MEDS: NSS (PRESERVATIVE FREE) 0.5 ML IV (05:21)
--- NOTE | 2023-08-17 05:32 | PTCARENOTE ---
pt in 4 pt soft wrist restraints, order updated overnight. pt extremely restless and agitated, PRN ativan given. AM labs sent. 1:1 remains at bedside. care ongoing.
[2023-08-17 05:36] LABS: Hematocrit 33.7 % (37.0-47.0); Hemoglobin 11.6 g/dL (12.0-16.0); Mean Corp Hgb Conc. 34.4 g/dL (33.0-37.0); Mean Corpuscular Hgb 30.5 pg (27.0-31.0); Mean Corpuscular Volume 88.7 fL (81.0-99.0); Mean Platelet Volume 10.9 fL (7.4-10.4); Platelet Count 167 10^3/uL (130-400); Red Cell Dist. Width 15.9 % (11.5-14.5); White Blood Cell Count 8.7 10^3/uL (4.8-10.8)
[2023-08-17 05:58] LABS: Blood Urea Nitrogen 12 mg/dl (7-17); Calcium 8.8 mg/dl (8.4-10.2); Carbon Dioxide 22 mmol/L (22-30); Chloride 116 mmol/L (98-107); Glucose 91 mg/dl (70-99); Potassium 3.5 mmol/L (3.5-5.1); Sodium 145 mmol/L (135-145); eGFR > 60.00
--- NOTE | 2023-08-17 06:29 | W.PN.HOSP.TC ---
Today's Communication/Plan
-
c/w supportive care
Agitation noticed with delirium, Ativan was given.
Add PRN hydralazine
Assessment / Plan
Assessment / Plan
Physical Exam
General: Intubated
HEENT: Atraumatic
Respiratory: Clear; No Wheezes
Cardiac: S1/S2
GI: Soft and Non Distended
Genito-urinary: No Bloody Urine or Vaughan
Musculoskeletal: No Clubbing, No Cyanosis and No Edema
Skin: No Jaundice
Neuro: Sedated
Psych: No Agitated
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
#Acute encephalopathy due to seizure /unresponsiveness, now acute delirium
Patient was intubated for airway protection in the emergency room. No documented hypoxia or respiratory distress. Extubated 08/15.
EEG with continuous monitoring, no seizure activity
Supportive care with IV fluid, aspiration precautions
Normal TSH
Continue with lacosamide and brivaracetam, add as needed lorazepam
Appreciate help
# Hypothermia, likely combination of medication induced and encephalopathy
Patient has had history of hypothermia in the past
#Essential hypertension
Keep normotensive. Add as needed hydralazine
#Hypothyroidism
- No changes intended
# GI prophylaxis & DVT prophylaxis
Total time spent to see the patient, examine the patient on the floor, review data and lab results, discuss treatment plan with patient, nursing staff around 55 minutes
Anticipated Discharge: > 48 hours
Subjective/Interval History
-
Date of Service: August 17, 2023
Agitated, confused over night, given Ativan
Objective Data
-
Labs:
Laboratory Results
08/17/23
05:27
WBC 8.7
Hgb 11.6 L
Hct 33.7 L
Plt Count 167
Sodium 145
Potassium 3.5
Chloride 116 H
Carbon Dioxide 22
BUN 12
Creatinine 0.8
Glucose 91
Calcium 8.8
Vital Signs:
Vital Signs
Temp Pulse Resp BP Pulse Ox
96.4 F L 77 19 163/69 99
08/17/23 03:13 08/17/23 06:00 08/17/23 06:00 08/17/23 06:00 08/17/23 06:00
I&O
08/15/23 08/16/23 08/17/23
06:59 06:59 06:59
Intake Total 6.1 / 5.0 648.9 / 648.9
Output Total 400 / 400 2400 / 2400
Balance 1626.1 / 1715.0 -1751.1 / -1751.1
[2023-08-17 06:50] LABS: Magnesium 1.8 mg/dl (1.6-2.3)
[2023-08-17] MEDS: BRIVIACT 50 MG IV ×2 (07:29→20:36)
[2023-08-17] MEDS: VIMPAT 200 MG IV ×2 (07:30→19:43)
--- NOTE | 2023-08-17 09:53 | W.PN.INTV ---
Today's Communication / Plan
Recommendations
Continue antiepileptic drugs
Hopefully can discontinue EEG monitoring
Continue maintenance IV fluids
Ativan as needed
Aspiration precautions
Fall precautions
Avoid additional sedatives if possible
Hopefully transfer to intermediate care unit
Assessment
-
Abrupt onset mental status changes/? Witnessed seizure/status epilepticus by EMS per records.
Respiratory failure for airway protection: Intubated and on mechanical ventilation.
CT head without contrast 08/15/2023: No acute abnormalities. Stable postoperative changes including bilateral frontotemporal craniotomies with underlying volume loss.
Chest x-ray 08/15/2023: No acute abnormalities.
Conditions present prior to admission:
Prior records:
Hypertension
Seizure disorder: on Brivaracetam
Hypothyroidism
History of brain aneurysm with subarachnoid hemorrhage 2002
Osteoarthritis
Brain aneurysm status post clipping
ESTIMATOR JEWELRY shunt
Bilateral craniotomies
Cholecystectomy
Assessment and plan:
-
Extubated 08/16/2023
Currently on room air
-
No further seizures documented on EEG.
So far no evidence for acute neurological event. CT head negative for bleeding. Prior postcraniotomy changes.
No evidence for infection
Apparently patient has history of prior breakthrough seizures. Discussed with son and caregiver at the bedside.
Per son who is at the bedside her mental status at home include some behaviors of agitation as well she usually use Ativan as needed
-
Neurology continues to follow: Continue antiepileptic drugs.
EEG without active seizures.Diffuse slowing 08/16/2023
Recovery post status epilepticus may take days.
-
Sputum with Pseudomonas aeruginosa's: Suspect colonization.
Chest x-ray without pneumonia
Not hypoxemic
Afebrile without leukocytosis
No need for antibiotics
-
Hypothermia/bradycardia resolved.
Son is states that her temperature at times goes to 96 �F at home. Suspect currently baseline per
Normal TSH
Continue to monitor
-
Continue n.p.o. for now
head of the bed elevated
Head of the bed elevation
IV fluids for maintenance will continue.
-
Glycemic control per protocol blood sugar 140-180. Insulin as needed
-
DVT prophylaxis with subcu Lovenox
Protonix for GI prophylaxis
-
Dr. Cary updated and son at the bedside 08/16/2023, 08/17/2023.
-
If continuous EEG monitoring discontinued. Transfer to intermediate care unit.
If transferred to IMU, critical care team will sign off.
Subjective Dataa
Subjective Data
Date of Service:
Date of Service: August 17, 2023
Chief Complaint: [employer] Follow Up (Status post seizures-respiratory failure/intubated/mechanical ventilation)
Subjective:
Patient is now extubated
Intermittently agitated
Restless at times
Requiring Ativan IV as needed for behavioral control
Review of Systems
General: Other (Unable to provide, patient noncommunicative at this point)
Objective Data
Data Reviewed
Vital Signs / I&O / Oxygen:
Vital Signs
Temp Pulse Resp BP Pulse Ox
94.6 F L 77 19 163/69 98
08/17/23 08:13 08/17/23 06:00 08/17/23 06:00 08/17/23 06:00 08/17/23 08:52
Intake and Output
08/16/23 08/17/23 08/18/23
06:59 06:59 06:59
Intake Total 2025.1 / 5.0 648.9 / 648.9 80 / 80
Output Total 400 / 400 2400 / 2400
Balance 1626.1 / 1715.0 -1751.1 / -1751.1 80 / 80
SaO2 [A/C] 99
SaO2 98
Nasal Cannula flow liters per 1
minute
Physical Exam
General: Respiratory Distress (n) and Comfortable
HEENT: Normocephalic
Cardiovascular: S1-S2 and Regular Rhythm
Respiratory: Clear and Wheeze (n)
GI: Soft and Non Distended
Neurology: Other (Open eyes spontaneously. Not following commands. Moving 4 extremities.) and Other (Intermittently agitated.)
Skin: Warm
Labs/Micro/Reports
Lab Data
08/17/23 05:27
08/17/23 05:27
Microbiology
08/15/23 17:48 Endotracheal Respiratory Culture - Preliminary
Pseudomonas aeruginosa
08/15/23 17:48 Endotracheal Gram Stain - Preliminary
--- NOTE | 2023-08-17 14:20 | PTCARENOTE ---
Pt becoming more alert. Able to answer questions w/ single words, speech garbled. Worked w/ speech therapy - still NPO but w/ occasional ice chip - will reassess tomorrow. Still attempting to climb out of bed and pull at lines - difficult to
redirect.
--- NOTE | 2023-08-17 14:55 | W.PN.UPDATE ---
Update Note
Progress Note Update
Mental status improved but is still delirious.
Continue with restraints
As needed Ativan which she takes at home for agitation at times.
Will transfer to intermediate care unit.
Critical care team will sign off.
--- NOTE | 2023-08-17 15:30 | PTOTSP ---
SPEECH THERAPY SWALLOW EVALUATION:
Patient exhibits clinical signs of oropharyngeal dysphagia, likely chronic in patient with multiple predisposing risk factors including history of brain aneurysm s/p shunt, SAH, craniotomy; CVA; arthritis; chronic cognitive impairments; and acutely
exacerbated by recent 2-day endotracheal intubation following seizure and altered mental status after status epilepticus. Patient is at high risk for aspiration and related complications given mental status, lethargy, and confusion. Recommend
temporary NPO, consider temporary non-oral nutrition/hydration/medication. Recommend ARHP of small single ice chips, sparingly, following oral care, with RN assist when patient upright and awake/alert; D/c ARHP should patient exhibit signs of
aspiration or decline in mental or respiratory status. Speech therapy to follow, re-assess patient in 24 hours, and provide continued diagnostic swallow therapy as appropriate. Given family report of pre-existing dysphagia symptoms (coughing with
meals), patient may benefit from instrumental assessment of swallowing when appropriate, however is not appropriate given mental status at this time.
RECOMMEND:
1) temporary NPO, consider temporary non-oral nutrition/hydration/medication
2) ARHP of small single ice chips, sparingly, following oral care, with RN assist when patient upright and awake/alert; D/c ARHP should patient exhibit signs of aspiration or decline in mental or respiratory status
3) Speech therapy to follow and re-assess patient in 24 hours
--- NOTE | 2023-08-17 16:52 | W.PN.NEURO.1 ---
Today's Communication / Plan
-
continue Vimpat and Briviact
Neuro Assessment/Plan
Assessment
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
representing status epilepticus. She had had alteration in mentation for approximately 2 days prior to admission had had recent antibiotic treatment for equivocal UTI but did have symptoms of dysuria and per patient's son a somewhat contaminated
urinalysis.
Continuous EEG monitoring showed no further seizure activity; this has been disconnected today.
CT head noncontrast showed chronic changes from the aneurysmal rupture, NATURAL RESOURCE TECHNICIAN shunt and clipping.
Patient does seem to have still some occasional small focal seizures at baseline so does not appear to have completely controlled epilepsy at baseline these can happen every couple of months, has not had large seizure event in a couple of years.
She is maintained on brivaracetam and lacosamide for home seizure medications and follows with Dr. Andrade at the [place] [facility]. She is very compliant with seizure medications. Son reported that after couple of years she returned
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
Plan
-d/c continuous EEG
-Continue current doses of Lacosamide and Brivaracetam
-Discussed with the patient's son and her prognosis
-continue neurochecks
-being transferred to IMU
-get records from Dr. Andrade at [place]
Subjective/Objective
Subjective Data
Date of Service: August 17, 2023
confused and agitated earlier today, now difficult to arouse but eventually woke up, followed some basic commands
Objective Data
Vital Signs
Temp Pulse Resp BP Pulse Ox
94.2 F L 58 19 94/42 98
08/17/23 11:45 08/17/23 11:00 08/17/23 11:00 08/17/23 11:00 08/17/23 11:00
Lab Results
08/17/23 05:27
08/17/23 05:27
PT 13.0 Sec (11.4-14.6) 08/15/23 13:05
INR 0.98 08/15/23 13:05
APTT 34.6 Sec (23.4-35.0) 08/15/23 13:05
Sodium 145 mmol/L (135-145) 08/17/23 05:27
Potassium 3.5 mmol/L (3.5-5.1) 08/17/23 05:27
BUN 12 mg/dl (7-17) 08/17/23 05:27
Glucose 91 mg/dl (70-99) 08/17/23 05:27
Calcium 8.8 mg/dl (8.4-10.2) 08/17/23 05:27
Phosphorus 3.8 mg/dl (2.5-4.5) 08/16/23 15:09
Patient Allergies
phenytoin [From Dilantin] Allergy (Unknown, Verified 09/22/21 10:59)
Unknown
ciprofloxacin [From Cipro] Allergy (Verified 09/22/21 10:59)
Unknown
Penicillins Allergy (Verified 09/22/21 10:59)
Unknown
vancomycin Allergy (Verified 09/22/21 10:59)
Vomiting
raw onions Allergy (Uncoded 09/22/21 10:59)
sensitivity
Physical Exam
Extended Neurological Exam
Attention Span & Concentration: Other (initially obtunded, then woke up, followed basic commands with help from son encouraging her)
Involuntary Movement: None
Speech: Mute
Cranial Nerve II: Left Eye: Pupillary Reactivity Unremarkable and Pupillary Size Unremarkable
Cranial Nerve II: Right Eye: Pupillary Reactivity Unremarkable and Pupillary Size Unremarkable
Cranial Nerves III, IV, : Extraocular Movement: Grossly Intact
Muscle Strength, Overall: Other (at least 3/5 diffusely )
[2023-08-17] MEDS: LOVENOX 40 MG SC (18:04)
--- NOTE | 2023-08-17 18:40 | PTCARENOTE ---
Pt becoming more agitated this evening - remains in 4 point soft limb restraints. Increasingly hypothermic - justin hugger restarted. Weened off oxygen and currently SPO2 is 94% on room air.
--- NOTE | 2023-08-17 19:22 | PTCARENOTE ---
cannot verify vital signs captured prior to 1900.
[2023-08-17] MEDS: BRIVIACT IV (19:44)
--- NOTE | 2023-08-17 20:13 | W.PN.UPDATE ---
Addendum entered and electronically signed by YOUSIF Fulton 08/18/23 05:31:
2099- Further discussion with Dr. Post, recommended also to discuss with [facility] patient follows with Dr. Smith with the epilepsy center. Discussed case with escalator constructor [place] neurology for the epilepsy center Dr. Holder, agreed
with continue current anti seizure medications Vimpat and Briviact IV, agreed with steroids IV as treatment plan for rash. Reviewed [place]'s recommendations with neurologist Dr. Post. Updated family patient's son Adam Del Toro (phone number
[phone]) on current treatment plan and findings of new rash, answered all questions.
Contact for patient's sons:
Adam Del Toro [phone]
Farhan Del Toor [phone]
Original Note:
Update Note
Progress Note Update
08/17/23
1999- Diffuse non raised red rash noted on bilateral arms, trunk anterior/posterior and bilateral thighs. No hives, urticaria, or angioedema noted, patient breathing well no difficulties or wheezing or SOB. Last medication received was Vimpat.
Updated neurologist, Dr. Post, on new development of rash. Patient has been on antiepileptic medications: Vimpat and Briviact; has not received dose of Risperdal recently but will hold/stop order for now, currently NOT on any antibiotics. For
now in favor of not stopped antiepileptic medications will initiate Benadryl 25mg IV prn, Decadron 4mg q6H IV, Pepcid IV, and topical steroid cream Kenalog for itching/rash. Neurology and primary team will continue to evaluate the rash clinically
and if any medications needs to be changed, will hold on changing medications at this time and treat rash for now.
[2023-08-17] MEDS: BENADRYL 25 MG IV (20:33)
[2023-08-17] MEDS: NSS (PRESERVATIVE FREE) 8 ML IV (20:34)
[2023-08-17] MEDS: PEPCID 20 MG IV (20:34)
[2023-08-17] MEDS: DECADRON 10 MG IV (20:35)
--- NOTE | 2023-08-17 20:55 | PTCARENOTE ---
While cleaning pt, red rash noted on back, wrapping around to front of trunk. Pt. moving around in bed, seems to be trying to itch it. No respiratory changes. SCHOOL BUS DRIVER/MECHANIC to bedside and sent photos to neurology. Orders to continue with current seizure
medications as ordered and give benadryl, pepcid, decadron, and triamcinolone ointment. Pt. oriented only to self. Minimal speech and when she does speak, it is garbled. Follows some simple commands. No seizure activity noted. 4 point restraints for
safety. While cleaning pt, restraints taken off and pt. trying to kick legs out of bed and tried to grab and bite staff. SR on tele. HR 80s-90s. Normothermic. Yoan hugger off. No edema. On RA. Lungs CTA. Occasional moist cough noted. + BS. NPO
maintained. Purewick replaced. IVF as ordered. Medsitter maintained. Will monitor
--- NOTE | 2023-08-17 21:02 | EEGC.RPT ---
Continuous EEG Report
Recording
Start Date of Data Reviewed: 08/16/23
Start Time of Data Reviewed: 07:00
End Date of Data Reviewed: 08/17/23
End Time of Data Reviewed: 07:00
Type of EEG: Continuous
Done with Video Recording: Yes
Study Sequence: Continuation of ongoing Study
Report
24 HOUR CONTINUOUS EEG REPORT
EEG INTERPRETATION:
Abnormal EEG showing diffuse slowing as well as more severe focal slowing bifrontally and occasionally in the right temporal region which can indicate structural abnormality in that area. No clear seizures seen.
METHODS:
A 21 channel digitized electroencephalogram (EEG) was performed at the bedside in the intensive care unit.� The 10/20 international system of electrode placement was used.� ECG was monitored.� Video was recorded. Study lasted 24 hours.
Quality
Good
Background
Asymmetry of background with focal slowing in bifrontal and right temporal regions at delta range frequencies superimposed on delta to theta range diffuse slowing of the background.
Sleep
Drowsiness demonstrated by attenuation of the background rhythm
--- NOTE | 2023-08-17 21:57 | EEGC.RPT ---
Continuous EEG Report
Recording
Start Date of Data Reviewed: 08/17/23
Start Time of Data Reviewed: 07:00
End Date of Data Reviewed: 08/17/23
End Time of Data Reviewed: 11:38
Type of EEG: Continuous
Study Sequence: Continuation of ongoing Study
Report
CONTINUOUS EEG REPORT
EEG INTERPRETATION:
Abnormal EEG showing diffuse slowing as well as more severe focal slowing bifrontally and occasionally in the right temporal region which can indicate structural abnormality in that area. No clear seizures seen.
METHODS:
A 21 channel digitized electroencephalogram (EEG) was performed at the bedside in the intensive care unit.� The 10/20 international system of electrode placement was used.� ECG was monitored.� Video was recorded. Study lasted 4 hours and 38 minutes.
Quality
Good
Background
Asymmetry of background with focal slowing in bifrontal and right temporal regions at delta range frequencies superimposed on delta to theta range diffuse slowing of the background.
[2023-08-17] MEDS: TRIAMCINOLONE 0.1% OINTMENT 1 APPLIC TOPICAL (22:55)
[2023-08-18] VITALS (18 sets, daily range): BP systolic 112–177; BP diastolic 56–97; PULSE 84
[2023-08-18] MEDS: DECADRON 4 MG IV ×3 (02:07→19:26)
[2023-08-18] MEDS: APRESOLINE 5 MG IV ×2 (02:33→12:20)
[2023-08-18] MEDS: BENADRYL 25 MG IV ×2 (03:02→07:32)
--- NOTE | 2023-08-18 05:30 | W.PN.UPDATE ---
Update Note
Progress Note Update
Nurse reported significant agitation despite restraints and medsitter in place. Nursing unable to redirect. Placed order for 1x dose of Ativan.
[2023-08-18] MEDS: NSS (PRESERVATIVE FREE) 0.5 ML IV (05:38)
[2023-08-18] MEDS: ATIVAN 1 MG IV (05:38)
[2023-08-18] MEDS: D5/0.45%NSS with KCL 10 MEQ 1000 IV ×2 (05:46→19:25)
--- NOTE | 2023-08-18 06:05 | PTCARENOTE ---
Pt more agitated this morning. Unable to redirect pt. Pt. in 4 point restraints, restless in bed. Constantly sitting up and pulling at restraints. YOUSIF Son notified. 1mg Iv ativan ordered and given. Pt. dozing on and off. Temp 95.9 warm blankets
placed. Pt. pulling off justin hugger.
--- NOTE | 2023-08-18 06:44 | W.PN.HOSP.TC ---
Today's Communication/Plan
-
Addressed code status with family, DNR
Trial of anti-psychotic to help with delirium and to avoid use of Ativan as possible
IVF and monitoring of blood work
Aspiration precautions
Decrease dose of Steroid as rash seemed to be less red and not spreading
Start Tube feeding in next 24 hours if unable to swallow, that will require continuous restraints.
Assessment / Plan
Assessment / Plan
Physical Exam
General: somnolent, no respiratory distress.
HEENT: Atraumatic
Respiratory: Clear; No Wheezes
Cardiac: S1/S2
GI: Soft and Non Distended
Genito-urinary: No Bloody Urine or Vaughan
Musculoskeletal: No Clubbing, No Cyanosis and No Edema
Skin: No Jaundice
Neuro: Sedated
Psych: No Agitated
88yo female with PMH significant for prior aneurysm rupture with resultant seizure disorder and NPH issues requiring FLAGGER shunt who presented to ED due to seizure and unresponsiveness
#Acute encephalopathy due to seizure /unresponsiveness, now acute delirium
Patient was intubated for airway protection in the emergency room. No documented hypoxia or respiratory distress. Extubated 08/15.
EEG with continuous monitoring, no seizure activity
Supportive care with IV fluid, aspiration precautions
Normal TSH
Continue with lacosamide and brivaracetam. She received Benadryl. Ativan seemed to help with sedation but no confusion. Ordered oral risperidone but was dc when she developed rash. Her mentation is still not back to baseline and unable to safely
give oral pills. Will try IM Zyprexa ( low dose) as it comes as IM. Family agreed to use Anti-psychotic and to try to avoid Ativan.
Neurologist is following, c/w current regimen.
To start Tube feeding in next 24 hours if not able to swallow.
# Skin rash, c/w drug induced maculopapular rash
Hide current intravenous antiseizure medication are the same what she took at home. Additional medication was given as as needed could be the culprit or propofol. After seeing patient twice, rash seemed less red and not spread after receiving IV
Decadron. Will decrease IV dose to twice daily no fever or hemodynamic instability noted.
# Hypothermia, likely combination of medication induced and encephalopathy
Patient has had history of hypothermia in the past
Continue with warming blanket as needed
#Essential hypertension
Keep normotensive. Add as needed hydralazine
#Hypothyroidism
- No changes intended
# GI prophylaxis & DVT prophylaxis
# CODE STATUS discussed with son. Patient has living will and she is DNR
Total time spent to see the patient, examine the patient on the floor, review data and lab results, discuss treatment plan with patient, son, nursing staff around 57 minutes
Anticipated Discharge: > 48 hours
Subjective/Interval History
-
Date of Service: August 18, 2023
Seen earlier and later this morning
Events over night noted and reviewed
Objective Data
-
Vital Signs:
Vital Signs
Temp Pulse Resp BP Pulse Ox
96.6 F L 74 16 137/67 94
08/18/23 03:04 08/18/23 06:16 08/18/23 06:16 08/18/23 06:16 08/18/23 06:16
I&O
08/16/23 08/17/23 08/18/23
06:59 06:59 06:59
Intake Total 2025.1 / 2114.0 648.9 / 648.9 1040 / 1040
Output Total 400 / 400 2400 / 2400 650 / 650
Balance 1626.1 / 1715.0 -1751.1 / -1751.1 390 / 390
[2023-08-18] MEDS: NSS (PRESERVATIVE FREE) 8 ML IV ×2 (07:31→19:26)
[2023-08-18] MEDS: PEPCID 20 MG IV ×2 (07:31→19:26)
[2023-08-18] MEDS: BRIVIACT 50 MG IV ×2 (07:48→19:26)
[2023-08-18] MEDS: VIMPAT 200 MG IV ×2 (07:48→19:26)
[2023-08-18] MEDS: DIPROSONE 0.05% 1 APPLIC TOPICAL ×2 (07:53→19:26)
--- NOTE | 2023-08-18 09:27 | PTCARENOTE ---
recd pt 0730 handoff at bedside, assessed, restless when disturbed, able to answer questions rarely, inconsistent. speech mostly garbled but pt very sleepy when undisturbed at present. rash still present trunk, improved on back and nonexistent on
legs. meds as ordered. purewick in place, skin intact, cleaned, attends dry, repositioned for comfort. family now bedside, updated. Seen by Dr. Franco. son interested in med lists, printout of home meds and current meds provided.
--- NOTE | 2023-08-18 12:24 | W.PN.NEURO.1 ---
Today's Communication / Plan
-
continue Briviact/Vimpat
need [facility] records
continue treatment for rash/agitation
continue neurochecks/seizure precautions
Neuro Assessment/Plan
Assessment
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
representing status epilepticus. She had had alteration in mentation for approximately 2 days prior to admission had had recent antibiotic treatment for equivocal UTI but did have symptoms of dysuria and per patient's son a somewhat contaminated
urinalysis. Continuous EEG monitoring showed no further seizure activity; this has been disconnected. 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 Evening of 08/16 she developed a rash that has been
gradually improving with steroids; etiology unclear. Case was discussed last night with [facility] fellow--they are making Dr. Andrade aware; records indicate that she was on Keppra prior to May 2023 when she was admitted at [facility] for
seizure and switched at that time to Vimpat; she has tolerated this well. Does have a h/o allergy to phenytoin. She has also developed some agitation at night and is olanzapine will be trialed; attempting to avoid benzos.
Patient does seem to have still some occasional small focal seizures at baseline so does not appear to have completely controlled epilepsy at baseline these can happen every couple of months, has not had large seizure event in a couple of years.
She is maintained on brivaracetam and lacosamide for home seizure medications and follows with Dr. Andrade at the [facility]. She is very compliant with seizure medications. Son reported that after couple of years she returned
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
Plan
-Continue current doses of Lacosamide and Brivaracetam
-Discussed with the patient's son and
-continue neurochecks, seizure precautions
-being transferred to IMU
-get records from Dr. 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
the complexity of her neurological history and recent seizures, would prefer to keep her on the regimen if at all possible.
Subjective/Objective
Subjective Data
Date of Service: August 18, 2023
developed rash yesterday evening
no convulsive seizures
mental status continues to improve gradually
Objective Data
Vital Signs
Temp Pulse Resp BP Pulse Ox
95.3 F L 59 16 161/77 96
08/18/23 11:07 08/18/23 12:20 08/18/23 09:00 08/18/23 12:20 08/18/23 09:00
Lab Results
08/17/23 05:27
08/17/23 05:27
PT 13.0 Sec (11.4-14.6) 08/15/23 13:05
INR 0.98 08/15/23 13:05
APTT 34.6 Sec (23.4-35.0) 08/15/23 13:05
Sodium 145 mmol/L (135-145) 08/17/23 05:27
Potassium 3.5 mmol/L (3.5-5.1) 08/17/23 05:27
BUN 12 mg/dl (7-17) 08/17/23 05:27
Glucose 91 mg/dl (70-99) 08/17/23 05:27
Calcium 8.8 mg/dl (8.4-10.2) 08/17/23 05:27
Phosphorus 3.8 mg/dl (2.5-4.5) 08/16/23 15:09
Patient Allergies
phenytoin [From Dilantin] Allergy (Unknown, Verified 09/22/21 10:59)
Unknown
ciprofloxacin [From Cipro] Allergy (Verified 09/22/21 10:59)
Unknown
Penicillins Allergy (Verified 09/22/21 10:59)
Unknown
vancomycin Allergy (Verified 09/22/21 10:59)
Vomiting
raw onions Allergy (Uncoded 09/22/21 10:59)
sensitivity
Physical Exam
Extended Neurological Exam
Attention Span & Concentration: Other (obtunded; opens eyes to sternal rub for a few seconds, follows some basic commands intermittently)
Involuntary Movement: None
Speech: Other (spoke to son/family via facetime earlier but mute for me)
Cranial Nerve II: Left Eye: Pupillary Reactivity Unremarkable and Pupillary Size Unremarkable
Cranial Nerve II: Right Eye: Pupillary Reactivity Unremarkable and Pupillary Size Unremarkable
Muscle Strength, Overall: Other (muscle strength 2-3/5 diffusely)
Deep Tendon Reflexes: Trace Throughout
[2023-08-18 13:13] LABS: ALT (SGPT) 85 U/L (0-35); AST (SGOT) 115 U/L (14-36); Albumin 2.9 g/dl (3.5-5.0); Alkaline Phosphatase 234 U/L (38-126); Direct Bilirubin 0.4 mg/dl (0.0-0.4); Total Bilirubin 0.4 mg/dl (0.2-1.3); Total Protein 5.5 g/dl (6.3-8.2)
--- NOTE | 2023-08-18 13:57 | PTCARENOTE ---
more brightly awake, verbalizing much more, answering questions. OOB to chair, ambulated 10 feet in room with RW and family support and RN. Gait steady, R foot perhaps a little weaker. back to chair.
--- NOTE | 2023-08-18 16:19 | PTCARENOTE ---
R temp 92.3, justin hugger and probe placed, pt resting, back to bed, assist 2. family visiting., IV fluids continue, no other change.
[2023-08-18] MEDS: LOVENOX 40 MG SC (17:11)
--- NOTE | 2023-08-18 21:29 | PTCARENOTE ---
Received pt restless in bed. Trying to climb OOB. Restraints remain off. PT stated she has to go to the bathroom.. 2 RNs assisted pt. to commode. Pt. had formed BM. Assisted back to bed and pt. fell asleep. Bed alarm on. Oriented only to self. Can
be difficult to redirect. SR on tele. BP stable. Hypothermic- justin hugger on. On RA. Lungs CTA. Spo2 94%. + bowel sounds. NPO. Purewick replaced. Cinda care provided. Trunk rash remains- ointment applied per MAY. L Wrist INT with IVF as ordered.
Turning q2. Medsitter in place.
[2023-08-19] VITALS (13 sets, daily range): BP systolic 101–165; BP diastolic 55–98; BMI 21.3
[2023-08-19] MEDS: ZOFRAN 4 MG IV (00:12)
[2023-08-19] MEDS: BENADRYL 25 MG IV (00:16)
--- NOTE | 2023-08-19 00:21 | PTCARENOTE ---
Pt. more agitated and restless with justin hugger on- removed. Warm blankets placed. Pt. also nauseous and itchy on back- zofran and benadryl given. Pt now resting.
[2023-08-19 04:44] LABS: Hematocrit 34.2 % (37.0-47.0); Hemoglobin 11.6 g/dL (12.0-16.0); Mean Corp Hgb Conc. 33.9 g/dL (33.0-37.0); Mean Corpuscular Hgb 30.3 pg (27.0-31.0); Mean Corpuscular Volume 89.3 fL (81.0-99.0); Mean Platelet Volume 11.1 fL (7.4-10.4); Platelet Count 179 10^3/uL (130-400); Red Blood Cell Count 3.83 10^6/uL (4.20-5.40); Red Cell Dist. Width 15.5 % (11.5-14.5)
[2023-08-19] MEDS: APRESOLINE 5 MG IV (06:18)
[2023-08-19 06:26] LABS: Blood Urea Nitrogen 15 mg/dl (7-17); Calcium 8.6 mg/dl (8.4-10.2); Carbon Dioxide 19 mmol/L (22-30); Chloride 114 mmol/L (98-107); Estimated Creatinine Clearance 42 ml/min; Glucose 112 mg/dl (70-99); Potassium 3.8 mmol/L (3.5-5.1); Sodium 140 mmol/L (135-145); eGFR > 60.00
[2023-08-19] MEDS: D5/0.45%NSS with KCL 10 MEQ 1000 IV (07:40)
[2023-08-19] MEDS: NSS (PRESERVATIVE FREE) 8 ML IV (07:43)
[2023-08-19] MEDS: PEPCID 20 MG IV (07:43)
[2023-08-19] MEDS: VIMPAT 200 MG IV ×2 (07:44→21:31)
[2023-08-19] MEDS: DECADRON 4 MG IV ×2 (07:44→21:27)
[2023-08-19] MEDS: DIPROSONE 0.05% 1 APPLIC TOPICAL ×2 (07:44→21:26)
[2023-08-19] MEDS: BRIVIACT 50 MG IV (07:44)
--- NOTE | 2023-08-19 08:30 | PTCARENOTE ---
Received pt @ change of shift. AOx1, self only; required reorientation to time/place. Remains out of restraints, able to redirect/cooperative. SR on monitor. SpO2 93% on RA. 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 +BS, abd soft/round. Inc b/b. Purewick in place w
yellow/esteban urine. Rash on back/abd/under breasts red/macular. #22 L wrist patent w IVF infusing- see MAR. Hypothermic this AM- justin hugger reapplied. Hygiene care provided. Repositioned per protocol. Awaiting speech eval. Bed alarm active;
med sitter in place.
--- NOTE | 2023-08-19 08:47 | W.PN.NEURO.1 ---
Today's Communication / Plan
-
-Monitor rash clinically, for fever as well as kidney liver function and for signs eosinophilia
-Would continue with the current antiseizure medications and will consider decreases in their doses
-Lacosamide 200 mg q12h, Brivaracetram 50 mg q12hr both IV
-Can remain off EEG
-Agree antipsychotic is reasonable, minimize and avoid Lorazepam for agitation
-Follow ability to swallow
Will follow
Neuro Assessment/Plan
Assessment
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
representing status epilepticus. She had had alteration in mentation for approximately 2 days prior to admission had had recent antibiotic treatment for equivocal UTI but did have symptoms of dysuria and per patient's son a somewhat contaminated
urinalysis. Continuous EEG monitoring showed no further seizure activity; this has been disconnected. 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 Evening of 08/16 she developed a rash that has been
gradually improving with steroids; etiology unclear. Case was discussed last night with [facility] epilepsy fellow--they are making Dr. Andrade aware; records indicate that she was on Keppra prior to May 2023 when she was admitted at [facility] for
seizure and switched at that time to Vimpat; she has tolerated this well. Does have a h/o allergy to phenytoin. She has also developed some agitation at night and is olanzapine will be trialed; attempting to avoid benzos.
Patient does seem to have still some occasional small focal seizures at baseline so does not appear to have completely controlled epilepsy at baseline these can happen every couple of months, has not had large seizure event in a couple of years.
She is maintained on brivaracetam and lacosamide for home seizure medications and follows with Dr. Andrade at the [facility]. She is very compliant with seizure medications. Son reported that after couple of years she returned
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
Developed rash on the upper abdomen, beneath the breast and on the back bilaterally.
Some potential for the rash to have been induced by the increased doses of seizure medications however given the rash is not worsening and no signs of dress syndrome would be very careful in lowering seizure medications and at this time I do not
think would be best to switch to different antiseizure medications altogether which could create new problems. No brand new seizure medications but they can produce rashes even long after starting.
Subjective/Objective
Subjective Data
Date of Service: August 19, 2023
No acute events, patient awake and conversant, discussed the recent events, denies pain on the area of rash
Objective Data
Vital Signs
Temp Pulse Resp BP Pulse Ox
94.5 F L 67 11 165/74 93
08/19/23 07:14 08/19/23 06:16 08/19/23 06:16 08/19/23 06:18 08/19/23 06:16
Lab Results
08/19/23 04:17
08/19/23 05:28
PT 13.0 Sec (11.4-14.6) 08/15/23 13:05
INR 0.98 08/15/23 13:05
APTT 34.6 Sec (23.4-35.0) 08/15/23 13:05
Sodium 140 mmol/L (135-145) 08/19/23 05:28
Potassium 3.8 mmol/L (3.5-5.1) 08/19/23 05:28
BUN 15 mg/dl (7-17) 08/19/23 05:28
Glucose 112 mg/dl (70-99) H 08/19/23 05:28
Calcium 8.6 mg/dl (8.4-10.2) 08/19/23 05:28
Phosphorus 3.8 mg/dl (2.5-4.5) 08/16/23 15:09
Patient Allergies
phenytoin [From Dilantin] Allergy (Unknown, Verified 09/22/21 10:59)
Unknown
ciprofloxacin [From Cipro] Allergy (Verified 09/22/21 10:59)
Unknown
Penicillins Allergy (Verified 09/22/21 10:59)
Unknown
vancomycin Allergy (Verified 09/22/21 10:59)
Vomiting
raw onions Allergy (Uncoded 09/22/21 10:59)
sensitivity
Review of Systems
-
History Source: Patient
All other systems: Reviewed and negative
Constitutional: No Symptoms
EENT: No Symptoms Reported
Respiratory: No Symptoms
Cardiac: No Symptoms
Abdomen/GI: No Symptoms
Genitourinary: No Symptoms
Musculoskeletal: No Symptoms
Skin: No Symptoms
Neuro: No Symptoms
Endocrine: No Symptoms
Hematologic / Lymphatic: No Symptoms
Allergy / Immunology: No Symptoms
Physical Exam
-
General: Comfortable
Eyes: No Ptosis
HEENT: Normocephalic
Neck: No Bruits Bilaterally
Respiratory: No Dyspnea; Negative Wheezes
Cardiac: No Murmur
GI: Normal Bowel Sounds
Skin: Other (Non raised mostly not totally confluent rash bilaterally on upper abdomen and beneath breasts, on sides of back, not on neck, no palm or tongue desquamation)
Extremities: No Edema
Psych: Confused; Negative Agitated or Intact Judgement/Insight
Extended Neurological Exam
Attention Span & Concentration: Awake, Alert, Interactive and Other (Counts to 20, names her and says they have been 50 years,)
Memory: Reduced
Speech: Quality Unremarkable and Quantity Unremarkable; Negative Expressive Aphasia, Receptive Aphasia or Dysarthric
Cranial Nerve II: Left Eye: Pupillary Reactivity Unremarkable
Cranial Nerve II: Right Eye: Pupillary Reactivity Unremarkable and Pupillary Size Unremarkable
Cranial Nerves III, IV, : Extraocular Movement: Extraocular Movement Full in all Directions
Muscle Strength, Overall: Other (5/5 arm flexion bilaterally, legs 4/5 hip flexion hip adduction/abduction bilaterally)
Data Reviewed
-
CT Head: Report Reviewed and Image Reviewed
EEG: Report Reviewed
--- NOTE | 2023-08-19 09:55 | PTOTSP ---
Speech Language Pathology
Pt seen for dysphagia tx. , daughter, and caregiver present at bedside. Discussed reports of pt coughing with P.O. intake at home. Caregiver reported this seems to be related to phlegm. Hoarse vocal quality noted at baseline, suspect
related to recent extubation. Daughter denied any PNA hx. P.O. trials of ice chips, thin liquids via straw, puree, and regular solids provided. Adequate mastication, bolus formation, and A-P transit noted with no oral residue. Brief cough x1.
Pt is at a higher risk for aspiration given mentation and recent extubation.
Recommend:
(1) VSE 08/19
(2) Initiate regular solids/thin liquids
(3) Aspiration precautions: sit upright, full supervision with assist as needed, make NPO if signs of aspiration noted
(4) Meds whole in puree
(5) UROLOGIST MD to continue to follow
--- NOTE | 2023-08-19 11:50 | W.PN.HOSP.TC ---
Today's Communication/Plan
-
Start diet
DC fluids
Out of bed/PT
Bear hugger as needed
IV steroids for 24 hours
Assessment / Plan
Assessment / Plan
Physical Exam
General: somnolent, no respiratory distress.
HEENT: Atraumatic
Respiratory: Clear; No Wheezes
Cardiac: S1/S2
GI: Soft and Non Distended
Genito-urinary: No Bloody Urine or Vaughan
Musculoskeletal: No Clubbing, No Cyanosis and No Edema
Skin: No Jaundice
Neuro: awake, not following commands
Psych: No Agitated
88yo female with PMH significant for prior aneurysm rupture with resultant seizure disorder and NPH issues requiring SUPPLIES PACKER shunt who presented to ED due to seizure and unresponsiveness
#Acute encephalopathy due to seizure /unresponsiveness, now acute delirium
Patient was intubated for airway protection in the emergency room. No documented hypoxia or respiratory distress. Extubated 08/15.
EEG with continuous monitoring, no seizure activity
Supportive care with IV fluid, aspiration precautions
Normal TSH
Continue with lacosamide and brivaracetam. She received Benadryl. Ativan seemed to help with sedation but no confusion. Ordered oral risperidone but was dc when she developed rash. Her mentation is still not back to baseline and unable to safely
give oral pills. Will try IM Zyprexa ( low dose) as it comes as IM. Family agreed to use Anti-psychotic and to try to avoid Ativan.
Neurologist is following, c/w current regimen.
regular diet started. VSE in am. DC IVF.
# Skin rash, c/w drug induced maculopapular rash
Hide current intravenous antiseizure medication are the same what she took at home. Additional medication was given as as needed could be the culprit or propofol. Cont decadron IV dose to twice daily no fever or hemodynamic instability noted x
24h for now.
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
Patient has had history of hypothermia in the past
Continue with warming blanket as needed
#Essential hypertension
Keep normotensive. Add as needed hydralazine
#Hypothyroidism
- No changes intended
# GI prophylaxis & DVT prophylaxis
# CODE STATUS -DNR
Discussed with 2 daughters at bedside in details.
Anticipated Discharge: > 48 hours
Subjective/Interval History
-
Date of Service: August 19, 2023
more awake
off restraints
not agitated currently
Objective Data
-
Labs:
Laboratory Results
08/19/23 08/19/23
04:17 05:28
WBC 9.0
Hgb 11.6 L
Hct 34.2 L
Plt Count 179
Sodium Cancelled 140
Potassium Cancelled 3.8
Chloride Cancelled 114 H
Carbon Dioxide Cancelled 19 L
BUN Cancelled 15
Creatinine Cancelled 0.9
Glucose Cancelled 112 H
Calcium Cancelled 8.6
Vital Signs:
Vital Signs
Temp Pulse Resp BP Pulse Ox
96.7 F L 78 14 130/58 93
08/19/23 11:00 08/19/23 09:00 08/19/23 09:00 08/19/23 08:00 08/19/23 09:28
I&O
08/18/23 08/19/23 08/20/23
06:59 06:59 06:59
Intake Total 1040 / 1040 1920 / 1920 160 / 160
Output Total 650 / 650 300 / 300
Balance 390 / 390 1620 / 1620 160 / 160
Data Reviewed
-
Total Time Spent with Patient (in minutes): 55
--- NOTE | 2023-08-19 13:43 | PTCARENOTE ---
Pt. assisted x 2 OOB to chair this AM. Remains OOB to chair, tolerating position. Seen by FORECLOSURE HOME INSPECTOR, as well this AM and diet advanced to regular. Tolerating new diet, no overt s/s of asp. Family remains @ bedside, updated on ongoing plan of care.
Chair alarm active. Safe environment maintained.
--- NOTE | 2023-08-19 13:56 | CM ---
Reviewed chart, reviewed PT, indication is for SNF. Will discuss with patient/family and obtain choices for rehab.
Plan: Case management will continue to follow and assist with discharge planning. SNF is indicated. Will f/u with family.
--- NOTE | 2023-08-19 15:41 | PTCARENOTE ---
Report given to 4E RN and pt. transferred to 410, bed 02 on lunchroom monitor w belongs, family, and med sitter. No further needs from this RN.
--- NOTE | 2023-08-19 16:37 | PTCARENOTE ---
Pt received as transfer to telemetry floor. Confused conversation. Pt able to follow commands. Bed alarm and medsitter observation in place. Oral temp 94.0F. Bairhugger placed on patient.
[2023-08-19] MEDS: LOVENOX 40 MG SC (17:37)
[2023-08-19] MEDS: BRIVIACT 25 MG IV (21:35)
--- NOTE | 2023-08-19 23:57 | PTCARENOTE ---
pt is aaox1, no c/o pain. pt is pleasant and cooperative. set pt up for dinner- ate the whole thing w/o issue. discontinued med sitter. pt resting in bed w/ bed alarm on and call [facility] in reach.
[2023-08-20] VITALS (8 sets, daily range): BP systolic 146–170; BP diastolic 69–94; PULSE 71–72; O2SAT 94
[2023-08-20] MEDS: DECADRON 4 MG IV ×2 (07:57→20:11)
[2023-08-20] MEDS: DIPROSONE 0.05% 1 APPLIC TOPICAL ×2 (07:58→20:28)
[2023-08-20] MEDS: PEPCID 20 MG IV (07:59)
[2023-08-20] MEDS: NSS (PRESERVATIVE FREE) 8 ML IV (07:59)
[2023-08-20] MEDS: VIMPAT 200 MG IV ×2 (07:59→20:13)
--- NOTE | 2023-08-20 08:15 | W.PN.NEURO.1 ---
Addendum entered and electronically signed by Chevy Killian MD 08/20/23 12:02:
I saw and evaluated the patient I reviewed the note by Merna Cotton agree to find the following comments:
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 She had been very
compliant with 25 mg p.o. brivaracetam twice daily as well as lacosamide 150 mg twice a day.
Her daughters relate that every couple of months she does have very small seizure activity where she may stare and have some abnormal movements of the left hand. She had not had a generalized or severe seizure in a couple of years.
Patient was able to be extubated, did not have seizure activity after being hooked up to continuous EEG shortly after her admission and intubation.
Developed a rash here which could be viral or due to drug effect or contact induced rash. Family relates that she has had a history of rashes when placed in hospitals.
Neurologic examination shows an awake and alert patient who is eating, she is slow in her responses but will respond and name her family members and identify simple objects in front of her appropriately she is unable to obey complex multistep
commands or engage in much complex conversation other than simple 1 or 2 word responses, the longest phrase she spoke to me was ' I feel lousy'
Mild dysarthria present other cranial nerves are otherwise normal
Motor examination shows no asymmetry of shoulder abduction.
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 I discussed with family that it does not appear to be
completely reasonable to have her completely free of small focal seizures altogether and that pursuing aggressive stopping of these medications could result in excessive side effects and cognitive issues from multiple or high doses of his
antiseizure medications.
Patient has improved since admission and since extubation but not at baseline which is likely mostly due to effects of status epilepticus.
I feel that the uncontrolled epilepsy at baseline with small occasional focal seizures is probably part of why she went into status epilepticus, otherwise not a clear antecedent for the status epilepticus.
Patient's family is clear and that this is not her neurologic baseline. Explained that the severity of her seizures upon admission can result in prolonged cognitive and neurologic impairment and that this is difficult to predict if permanent or the
degree to which it would improve, only time will tell.
Somewhat suspicious that her rash is a contact type given the patient's family reporting that she often develops a rash while in hospital and not generally at home. There remains a possibility that this could be related to the increased doses of
seizure medications given for status epilepticus, rashes can result from antiseizure medications have been on them for some time.
Recommendations
-Attempt to switch antiseizure medications to p.o.
-Small decrease in brivaracetam to her previous home dose 25 mg twice daily
-Would continue with some 200 mg twice daily given her presentation with status epilepticus
-Monitor rash, showing signs of significant worsening
-Discussed expectations and recovery that can be prolonged with the patient and her family
-Monitor clinically for seizures
-Monitor p.o. intake, mobilization physical therapy is to assess if any candidacy for rehabilitation
Will follow
Original Note:
Today's Communication / Plan
-
.
Neuro Assessment/Plan
Assessment
88-year-old woman with a past ministry of ruptured aneurysmal subarachnoid hemorrhage with craniotomy clipping and SENIOR STORAGE ADMINISTRATOR shunt, subsequent epilepsy presenting to hospital with prolonged seizure activity right arm and leg clonic movements most likely
representing status epilepticus. She had had alteration in mentation for approximately 2 days prior to admission had had recent antibiotic treatment for equivocal UTI but did have symptoms of dysuria and per patient's son a somewhat contaminated
urinalysis. Continuous EEG monitoring showed no further seizure activity; this has been disconnected. CT head noncontrast showed chronic changes from the aneurysmal rupture, SENIOR STORAGE ADMINISTRATOR shunt and clipping. Evening of 08/16 she developed a rash that has been
gradually improving with steroids; etiology unclear. Case was discussed last night with [facility]--they are making Dr. Andrade aware; records indicate that she was on Keppra prior to May 2023 when she was admitted at [place] for
seizure and switched at that time to Vimpat; she has tolerated this well. Does have a h/o allergy to phenytoin. She has also developed some agitation at night and is olanzapine will be trialed; attempting to avoid benzos.
Patient does seem to have still some occasional small focal seizures at baseline so does not appear to have completely controlled epilepsy at baseline these can happen every couple of months, has not had large seizure event in a couple of years.
She is maintained on brivaracetam and lacosamide for home seizure medications and follows with Dr. Andrade at the [facility]. She is very compliant with seizure medications. Son reported that after couple of years she returned
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
Developed rash on the upper abdomen, beneath the breast and on the back bilaterally, stable.
Some potential for the rash to have been induced by the increased doses of seizure medications however given the rash is not worsening and no signs of dress syndrome would be very careful in lowering seizure medications and at this time I do not
think would be best to switch to different antiseizure medications altogether which could create new problems. No brand new seizure medications but they can produce rashes even long after starting.
Plan
-Continue Vimpat 200mg and Briviact 25mg IV q12hrs.
-Continue neurological checks, seizure precautions
-Get records from Dr. Andrade at [facility]; LARGE ANIMAL VETERINARIAN discussed rash with [facility] fellow overnight--recommended continuing same meds; no indication of any allergic reaction to Vimpat/Briviact in the past; etiology of rash is unclear and given
the complexity of her neurological history and recent seizures, would prefer to keep her on the regimen if at all possible.
-DVT prophylaxis.
-PT/OT/ST
-Patient will need outpatient follow-up with her Neurologist Dr. Andrade at [facility].
Subjective/Objective
Subjective Data
Date of Service: August 20, 2023
No acute events overnight. Patient is awake and alert, answers simple questions but minimally verbal. Offers no complaints.
Objective Data
Vital Signs
Temp Pulse Resp BP Pulse Ox
97.8 F 87 16 146/81 95
08/20/23 03:13 08/20/23 03:13 08/20/23 03:13 08/20/23 03:13 08/20/23 03:13
Lab Results
08/19/23 04:17
08/19/23 05:28
PT 13.0 Sec (11.4-14.6) 08/15/23 13:05
INR 0.98 08/15/23 13:05
APTT 34.6 Sec (23.4-35.0) 08/15/23 13:05
Sodium 140 mmol/L (135-145) 08/19/23 05:28
Potassium 3.8 mmol/L (3.5-5.1) 08/19/23 05:28
BUN 15 mg/dl (7-17) 08/19/23 05:28
Glucose 112 mg/dl (70-99) H 08/19/23 05:28
Calcium 8.6 mg/dl (8.4-10.2) 08/19/23 05:28
Phosphorus 3.8 mg/dl (2.5-4.5) 08/16/23 15:09
Patient Allergies
phenytoin [From Dilantin] Allergy (Unknown, Verified 09/22/21 10:59)
Unknown
ciprofloxacin [From Cipro] Allergy (Verified 09/22/21 10:59)
Unknown
Penicillins Allergy (Verified 09/22/21 10:59)
Unknown
vancomycin Allergy (Verified 09/22/21 10:59)
Vomiting
raw onions Allergy (Uncoded 09/22/21 10:59)
sensitivity
Review of Systems
-
Unable to obtain full review of systems at this time due to: Other (minimally verbal)
History Source: Patient
EENT: Negative Decreased Vision or Swallowing Difficulty
Respiratory: Negative Cough or Trouble Breathing
Cardiac: Negative Chest Pain
Neuro: Weakness; Negative Dizzy, Headache, Numbness, Ataxia, Tremors or Speech Problem
Physical Exam
-
General: No Apparent Distress
Eyes: No Ptosis and PERRLA
HEENT: Normocephalic and Atraumatic
Neck: Full Range of Motion
GI: Non-distended
Extremities: No Clubbing, No Cyanosis and No Edema
Extended Neurological Exam
Mood & Affect: Mood Unremarkable and Affect Unremarkable
Attention Span & Concentration: Awake, Alert and Interactive
Memory: Reduced (oriented to person)
Tremor: Hand Tremor Absent and Head Tremor Absent
Involuntary Movement: None
Speech: Quality Unremarkable, Rate of Production Unremarkable and Severely Reduced Output (minimally verbal, no overt aphasia)
Cranial Nerve II: Left Eye: Pupillary Reactivity Unremarkable, Pupillary Size Unremarkable and Visual Kaiser Grossly Intact
Cranial Nerve II: Right Eye: Pupillary Reactivity Unremarkable, Pupillary Size Unremarkable and Visual Kaiser Grossly Intact
Cranial Nerves III, IV, : Extraocular Movement: Extraocular Movement Full in all Directions
Cranial Nerve VII: Facial Symmetry: Normal Facial Symmetry
Cranial Nerve VIII: Hearing: Unremarkable Hearing to Normal Conversational Volume
Cranial Nerves IX, X: Palate Movement: Palate Elevation Symmetric
Cranial Nerve XII: Tongue Protusion: Midline
Muscle Strength, Overall: Reduced Bilaterally and Spontaneously Moves
Data Reviewed
-
EEG: Report Reviewed
Labs: Report Reviewed
Reviewed with: Physician and Patient
Medications
-
Active Medications
Generic Name Dose Route Start Last Admin
Trade Name Freq PRN Reason Stop Dose Admin
Acetaminophen 650 mg 08/16/23 16:35 08/16/23 16:45
Acetaminophen 650 Mg Rectal Suppository RECTAL 09/13/23 16:34 650 mg
Q4HPRN PRN Administration
MILD PAIN
Acetaminophen 650 mg 08/16/23 16:35
Acetaminophen 325 Mg Tablet PO 09/13/23 16:34
Q4HPRN PRN
MILD PAIN
Betamethasone Dipropionate 0 applic 08/18/23 08:00 08/20/23 07:58
Betamethasone Dipropionate 0.05% (Ointment) 15 Gram Tube TOPICAL 09/15/23 07:59 1 applic
BID TESSA Administration
Dexamethasone Sodium Phosphate 4 mg 08/18/23 20:00 08/20/23 07:57
Dexamethasone 4 Mg/Ml 1 Ml Vial IV 09/15/23 19:59 4 mg
BID TESSA Administration
Diphenhydramine HCl 25 mg 08/17/23 20:11 08/19/23 00:16
Diphenhydramine 50 Mg/Ml 1 Ml Vial IV 09/14/23 20:10 25 mg
Q4HPRN PRN Administration
rash/itching
Enoxaparin Sodium 40 mg 08/15/23 18:00 08/19/23 17:37
Enoxaparin Sodium 40 Mg/0.4 Ml Syringe SC 09/12/23 17:59 40 mg
QPM TESSA Administration
Famotidine 20 mg 08/20/23 08:00 08/20/23 07:59
Famotidine 20 Mg/2 Ml Vial IV 09/17/23 07:59 20 mg
DAILY TESSA Administration
Hydralazine HCl 5 mg 08/17/23 09:03 08/19/23 06:18
Hydralazine 20 Mg/Ml Vial IV 09/14/23 09:02 5 mg
Q4HPRN PRN Administration
SBP more than 155
Lacosamide 200 mg 08/15/23 20:00 08/20/23 07:59
Lacosamide (10 Mg/Ml) 200 Mg/20 Ml Vial IV 08/29/23 19:59 200 mg
Q12H TESSA Administration
Lorazepam 2 mg 08/15/23 12:02
Lorazepam 2 Mg/Ml Vial IV 09/12/23 12:01
Q6HPRN PRN
Per neuro for seizure, on cEEG
Olanzapine 5 mg 08/18/23 11:34
Olanzapine 10 Mg (Powder For Reconstitution) Vial IM 09/15/23 11:32
BIDPRN PRN
Severe agitation
Sodium Chloride 0 flush 08/15/23 13:00
Sodium Chloride 0.9% (Flush) Syringe IV 09/12/23 12:59
PER PROTOCOL TESSA
Sodium Chloride 1 ml 08/15/23 12:40
Nss (Pf) 10 Ml Vial For Ativan 2 Mg Dose IV 09/12/23 12:39
Q6HPRN PRN
IV LORAZEPAM DILUTION
Sodium Chloride 8 ml 08/20/23 08:00 08/20/23 07:59
Nss 8 Ml Bid IV 09/17/23 07:59 8 ml
DAILY TESSA Administration
Sterile Water 2.1 ml 08/18/23 11:44
Sterile Water For Injection 10 Ml Vial IM 09/15/23 11:43
BIDPRN PRN
RECON
Home Medications
�Medication �Instructions �Recorded
docusate sodium 100 mg capsule 100 mg PO BID Constipation 03/26/17
metoprolol succinate 25 mg 25 mg PO QPM Blood pressure 03/26/17
tablet,extended release 24 hr
trazodone 50 mg tablet 12.5 mg PO HS Mental Health/Anxiety 03/26/17
brivaracetam 25 mg tablet 25 mg PO BID Seizures 09/22/21
(Briviact)
cetirizine 10 mg capsule (Zyrtec) 10 mg PO QPM Allergies 09/22/21
lacosamide 150 mg tablet (Vimpat) 150 mg PO HS Seizures 09/22/21
melatonin 3 mg tablet 3 mg PO HS Sleep 09/22/21
amlodipine 5 mg tablet 5 mg PO DAILY Blood pressure 11/27/21
calcium carbonate 500 mg PO DAILY Supplement 11/27/21
fluticasone propionate 50 1 spray intranasal BID Allergies 11/27/21
mcg/actuation nasal
spray,suspension
lacosamide 100 mg tablet (Vimpat) 100 mg PO DAILY Seizures 11/27/21
acetaminophen 325 mg tablet 650 mg PO Q6HPRN PRN mild pain 08/15/23
(Tylenol)
cefuroxime axetil 250 mg tablet 250 mg PO BID Infection 08/15/23
conjugated estrogens 0.625 mg/gram 1 applic vaginal MOTH Hormonal 08/15/23
vaginal cream (Premarin) Agent
latanoprost 0.005 % eye drops 1 drp BOTH EYES HS Eye Condition 08/15/23
levothyroxine 50 mcg tablet 50 mcg PO QPM Thyroid 08/15/23
lorazepam 0.5 mg tablet 0.5 mg PO DAILYPRN PRN seizures 08/15/23
methenamine hippurate 1 gram tablet 1 g PO BID INFECTION PREVENTION 08/15/23
sertraline 25 mg tablet 25 mg PO DAILY Mental 08/15/23
Health/Anxiety
[2023-08-20] MEDS: BRIVIACT 25 MG IV ×2 (08:51→20:10)
--- NOTE | 2023-08-20 11:04 | W.PN.HOSP.TC ---
Today's Communication/Plan
-
IVF
IV AEDs
npo
Assessment / Plan
Assessment / Plan
Physical Exam
General: no respiratory distress. cough noted with eating
HEENT: Atraumatic
Respiratory: Clear; No Wheezes
Cardiac: S1/S2
GI: Soft and Non Distended
Genito-urinary: No Bloody Urine or Vaughan
Musculoskeletal: No Clubbing, No Cyanosis and No Edema
Skin: No Jaundice
Neuro: awake, not following commands
Psych: No Agitated
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
#Acute encephalopathy due to seizure /unresponsiveness, now acute delirium
Patient was intubated for airway protection in the emergency room. No documented hypoxia or respiratory distress. Extubated 08/15.
EEG with continuous monitoring, no seizure activity
Supportive care with IV fluid, aspiration precautions
Normal TSH
Continue with lacosamide and brivaracetam. She received Benadryl. Ativan seemed to help with sedation but no confusion. Ordered oral risperidone but was dc when she developed rash. Her mentation is still not back to baseline and unable to safely
give oral pills. Will try IM Zyprexa ( low dose) as it comes as IM. Family agreed to use Anti-psychotic and to try to avoid Ativan.
Neurologist is following, c/w current regimen.
# Skin rash, c/w drug induced maculopapular rash
Hide current intravenous antiseizure medication are the same what she took at home. Additional medication was given as as needed could be the culprit or propofol. Cont decadron IV dose to twice daily no fever or hemodynamic instability noted x
24h for now.
#Suspcted chronic Dysphagia
Initially was on regular diet but failed VSE and speech recs strict NPO
Cont IV meds
IVF
Speech evals daily
seems chronic issues-per 2 daughter patient has been coughing for sometime at home with meals.
d/w options for IVF with daily speech eval, vs. feeding tube. Family to decide. Comfort feeding then recs comfort care/Hospice.
DHT high risk pt wont tolerate and will pull it out.
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
Patient has had history of hypothermia in the past
Continue with warming blanket as needed
#Essential hypertension
Keep normotensive. Add as needed hydralazine
#Hypothyroidism
- No changes intended
# GI prophylaxis & DVT prophylaxis
# CODE STATUS -DNR
Discussed with 2 daughters at bedside in details and patient spouse.
Anticipated Discharge: > 48 hours
Subjective/Interval History
-
Date of Service: August 20, 2023
seen eating breakfast
calm this am and overnight
remains without restraints
Tele sitter off
Objective Data
-
Vital Signs:
Vital Signs
Temp Pulse Resp BP Pulse Ox
97.6 F 66 18 170/73 96
08/20/23 07:35 08/20/23 07:35 08/20/23 07:35 08/20/23 07:35 08/20/23 10:23
I&O
08/19/23 08/20/23 08/21/23
06:59 06:59 06:59
Intake Total 1920 / 1920 960 / 960
Output Total 300 / 300 300 / 300
Balance 1620 / 1620 660 / 660
Data Reviewed
-
Total Time Spent with Patient (in minutes): 55
--- NOTE | 2023-08-20 11:42 | PTOTSP ---
Video Swallow Study
Summary: Patient presents with mild oral stage and severe pharyngeal dysphagia with silent aspiration of multiple liquid consistencies and masticated solids. Cued coughing was weak/did not fully clear contrast. See patient care note for details of
physiology.
Patient is at an elevated risk for choking (if she does not fully masticate solids)and risk for aspiration complications (due to weakness, decreased ambulation, acute delirium) but does not have signs of aspiration complications at this time or
prior to admission (no recent PNA). Further goals of care discussion about nutrition/hydration warranted.
Met with family at the bedside. Provided education about options which include PO understanding aspiration/choking risks vs temporary non-oral means of nutrition/hydration. If opting for PO for comfort/pleasure, consider pureed foods and thin
liquids with upright positioning, small single sips/bites, slow rate, cues to cough throughout meal, and frequent thorough oral care. Family indicated they would like patient to eat/drink but will discuss further with physician about overall
clinical picture. Notified nurse and physician.
Recommend:
1. Goals of care discussion regarding nutrition/hydration
2. Medications - non-oral
3. Oral care 3x daily
4. Dysphagia tx follow up at the acute care level.
[2023-08-20] MEDS: D5LR 1000 IV (12:17)
--- NOTE | 2023-08-20 12:38 | PTCARENOTE ---
Pt went for a video swallow eval and results identify silent aspiration. I discussed with the MD Coronel to keep NPO. Speech educated the family bedside on the results. They were advised that she could have nothing by mouth. Speech asked the MD to
come speak with the family because they want her to eat. The family gave the patient oatmeal and applesauce prior to seeing the MD. I advised again she c an have nothing by mouth, not even applesauce or oatmeal. MD came up to see the family an
discuss with the same education provided by RN and Speech. Pt is on IV fluids now, NPO signs on doorway and above HOB.
--- NOTE | 2023-08-20 16:50 | PN.CDI ---
CDI
- -
CDI:
Physician Documentation Request
Admit Date: 08/15/23 11:36
Dear Doctor Ana Cristina,
Please review the following and provide your response in the progress notes.
Clinical Indicators:
Pt admitted with Seizure /Hypothermia
Neurology note 08/19, ' ...awake and alert patient who is eating, she is slow in her responses but will respond and name her family members and identify simple objects in front of her appropriately she is unable to obey complex multistep commands or
engage in much complex conversation other than simple 1 or 2 word responses...Patient's family is clear and that this is not her neurologic baseline...'
Progress note 08/19,' Acute encephalopathy due to seizure /unresponsiveness, now acute delirium ....Her mentation is still not back to baseline and unable to safely give oral pills. Will try IM Zyprexa ...'
Based on the above, could you clarify in the Progress Notes and Discharge Summary which, if any of the following, is the most likely etiology of the ongoing confusion/altered mental status.
Metabolic Encephalopathy/Acute delirium
Acute Delirium only
Other ( please specify)
Use of terms such as suspected, likely, concern for, or probable (associated with a specific diagnosis that is being evaluated, monitored, or treated as if it exists) are acceptable and can be coded in the inpatient setting, when documented at the
time of discharge.
Thank you,
Agatha Ortiz RN
CDI Specialist
[facility]
Please use your independent medical judgment in providing your response.
[2023-08-20] MEDS: LOVENOX 40 MG SC (17:22)
[2023-08-20] MEDS: APRESOLINE 5 MG IV (20:48)
[2023-08-21] VITALS (7 sets, daily range): BP systolic 118–200; BP diastolic 58–92; PULSE 56; O2SAT 95
--- NOTE | 2023-08-21 00:29 | PTCARENOTE ---
Report given to 4W RN and patient transferred to [facility] with all belongings.
--- NOTE | 2023-08-21 06:27 | DOWNTIME ---
There was a [employer] Downtime on 08/21/2023 from 0100 to 08/21/2023 at 0337. Downtime documentation of patient's care, including medication administrations, has been reconciled in the electronic record per guidelines. Refer to the
patient's paper chart under the miscellaneous tab to see printed paper medication records and downtime forms.
[2023-08-21] MEDS: D5LR 1000 IV (07:25)
[2023-08-21] MEDS: BRIVIACT 25 MG IV ×2 (08:10→20:23)
[2023-08-21] MEDS: VIMPAT 200 MG IV ×2 (08:14→20:30)
[2023-08-21] MEDS: DECADRON 4 MG IV ×2 (08:30→20:22)
[2023-08-21] MEDS: PEPCID 20 MG IV (08:31)
[2023-08-21] MEDS: NSS (PRESERVATIVE FREE) 8 ML IV (08:32)
[2023-08-21] MEDS: DIPROSONE 0.05% 1 APPLIC TOPICAL ×2 (08:34→20:31)
--- NOTE | 2023-08-21 10:40 | CM ---
Addendum entered by Louann [facility] 08/21/23 15:43:
Family agreeable to hospice.
IMM completed.
Plan to have equipment delivered tomorrow.
Ambulance transport to be set up tomorrow for Saturday 10 am.
Ambulance transport form completed.
Original Note:
Spoke with patients daughters Geeta and Leanne Bedside.
They have not discussed with their father yet, but will when he arrives.
Patient was ambulatory with cognitive decline at baseline.
They are interested in home hospice.
They have 24 hour care in the home.
Options discussed, daughters aware if DH does not go to their area additional options will be provided.
Plan: home with hospice once whole family in agreement and arrangements made.
--- NOTE | 2023-08-21 10:46 | W.PN.HOSP.TC ---
Addendum entered and electronically signed by Jr De La Paz MD 08/21/23 13:15:
Family would like to proceed with comfort feeding. Family does understand aspiration leading to pneumonia hypoxemia and . Family 2 daughters wants to proceed with comfort feeding and they are actively discussing hospice. No decision made yet.
Original Note:
Today's Communication/Plan
-
Hospice consult
npo
IVF
prognosis guarded
Assessment / Plan
Assessment / Plan
Physical Exam
General: no respiratory distress. sleeping
HEENT: Atraumatic
Respiratory: not tachypneic
Cardiac: S1/S2
GI: Non Distended
Genito-urinary: No Bloody Urine or Vaughan
Musculoskeletal: No Clubbing, No Cyanosis and No Edema
Skin: No Jaundice
Neuro: sleeping
Psych: No Agitated
88yo female with PMH significant for prior aneurysm rupture with resultant seizure disorder and NPH issues requiring PRODUCTION SOUND MIXER shunt who presented to ED due to seizure and unresponsiveness
#Acute metabolic toxic encephalopathy due to seizure /unresponsiveness, now acute delirium
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
#Focal epilepsy
Patient was intubated for airway protection in the emergency room. No documented hypoxia or respiratory distress. Extubated 08/15.
EEG with continuous monitoring, no seizure activity
Supportive care with IV fluid, aspiration precautions
Normal TSH
Continue with lacosamide and brivaracetam. She received Benadryl. Ativan seemed to help with sedation but no confusion. Ordered oral risperidone but was dc when she developed rash. Her mentation is still not back to baseline and unable to safely
give oral pills. Will try IM Zyprexa ( low dose) as it comes as IM. Family agreed to use Anti-psychotic and to try to avoid Ativan.
Neurologist is following, c/w current regimen.
# Skin rash, c/w drug induced maculopapular rash
Hide current intravenous antiseizure medication are the same what she took at home. Additional medication was given as as needed could be the culprit or propofol. Cont decadron IV dose to twice daily no fever or hemodynamic instability noted.
#Acute on chronic Dysphagia
Initially was on regular diet but failed VSE and speech recs strict NPO
Cont antiepileptic IV meds for now
IVF
Speech evals daily
seems chronic issues-per 2 daughter patient has been coughing for sometime at home with meals.
d/w options for IVF with daily speech eval, vs. feeding tube. Family to decide. Comfort feeding then recs comfort care/Hospice.
DHT high risk pt wont tolerate and will pull it out.
Family to discuss with hospice and then leaning away from feeding tube. Family to discuss with patient spouse. They understand the concept of comfort feeding leading to high risk of pneumonia, hypoxemia and . Family wants to obtain further
information about hospice and would like patient to be transition home as they have care set up and would like to avoid SNF.
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
Patient has had history of hypothermia in the past
Continue with warming blanket as needed
#Essential hypertension
Keep normotensive. Add as needed hydralazine
#Hypothyroidism
- No changes intended
# Transaminitis likely secondary to chronic antiseizure medication
-Can trend for now.
# GI prophylaxis & DVT prophylaxis
# CODE STATUS -DNR
Discussed with 2 daughters at bedside in details for prolonged period of time. Hospice consult placed.
Dispo-home with VN comfort feeding. Hospice to be decided. CM consulted.
Anticipated Discharge: Within 24 hours
Subjective/Interval History
-
Date of Service: August 21, 2023
currently sleeping
comfortable
remains NPO and on IVF
Objective Data
-
Vital Signs:
Vital Signs
Temp Pulse Resp BP Pulse Ox
97.7 F 69 18 156/84 94
08/21/23 08:03 08/21/23 08:03 08/21/23 08:03 08/21/23 08:03 08/21/23 08:03
I&O
08/20/23 08/21/23 08/22/23
06:59 06:59 06:59
Intake Total 960 / 960 240 / 240
Output Total 300 / 300
Balance 660 / 660 240 / 240
Data Reviewed
-
Total Time Spent with Patient (in minutes): 56
--- NOTE | 2023-08-21 11:57 | HOSPNOTE ---
Addendum entered by Saskia Arguelles RN 08/21/23 15:13:
Family called and is in agreement with hospice and the philosophy. The plan is equipment will be ordered for delivery tomorrow and transport will be needed for the patient on Tuesday 08/22 to home. Once the patient is home we will sign the patient
onto hospice services. OOH DNR will be needed on chart. Case management and Attending aware of plan.
Original Note:
Met with daughters and discussed hospice and the philosophy. The daughters would like to speak to their Dad about hospice and the philosophy. They will need to arrange another private caregiver and the plan if the whole family agrees with hospice
order equipment to be delivered tomorrow () and get patient home on Saturday and once home admit onto hospice services with . Will update when family calls me with a decision.
--- NOTE | 2023-08-21 14:13 | W.PN.NEURO.1 ---
Today's Communication / Plan
-
-Goals of care, most likely will not pursue PEG tube, considering hospice given the significant dysphagia
-Seizure medications Briviact 25 mg q12hr, Lacosamide 200 mg q12hr IV. If pursuing hospice these can tab or liquid formulation but needs to stay on these medications
Neuro Assessment/Plan
Assessment
88-year-old woman with a past ministry of ruptured aneurysmal subarachnoid hemorrhage with craniotomy clipping and SPINNING FRAME CLEANER shunt, subsequent epilepsy presenting to hospital with prolonged seizure activity right arm and leg clonic movements most likely
representing status epilepticus. She had had alteration in mentation for approximately 2 days prior to admission had had recent antibiotic treatment for equivocal UTI but did have symptoms of dysuria and per patient's son a somewhat contaminated
urinalysis. Continuous EEG monitoring showed no further seizure activity; this has been disconnected. CT head noncontrast showed chronic changes from the aneurysmal rupture, SPINNING FRAME CLEANER shunt and clipping. Evening of 08/16 she developed a rash that has been
gradually improving with steroids; etiology unclear. Case was discussed last night with [facility]--they are making Dr. Andrade aware; records indicate that she was on Keppra prior to May 2023 when she was admitted at [facility] for
seizure and switched at that time to Vimpat; she has tolerated this well. Does have a h/o allergy to phenytoin. She has also developed some agitation at night and is olanzapine will be trialed; attempting to avoid benzos.
Patient does seem to have still some occasional small focal seizures at baseline so does not appear to have completely controlled epilepsy at baseline these can happen every couple of months, has not had large seizure event in a couple of years.
She is maintained on brivaracetam and lacosamide for home seizure medications and follows with Dr. Andrade at the [facility]. She is very compliant with seizure medications. Son reported that after couple of years she returned
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
Developed rash on the upper abdomen, beneath the breast and on the back bilaterally, stable.
Some potential for the rash to have been induced by the increased doses of seizure medications however given the rash is not worsening and no signs of dress syndrome would be very careful in lowering seizure medications and at this time I do not
think would be best to switch to different antiseizure medications altogether which could create new problems. No brand new seizure medications but they can produce rashes even long after starting.
Cognitive impairment worse after status epilepticus
Patient probably has long standing dysphagia from previous SAH
Subjective/Objective
Subjective Data
Date of Service: August 21, 2023
Saw the patient, no complaints, confused, discussed with family
Objective Data
Vital Signs
Temp Pulse Resp BP Pulse Ox
97.7 F 69 18 156/84 94
08/21/23 08:03 08/21/23 08:03 08/21/23 08:03 08/21/23 08:03 08/21/23 08:03
Lab Results
08/19/23 04:17
08/19/23 05:28
PT 13.0 Sec (11.4-14.6) 08/15/23 13:05
INR 0.98 08/15/23 13:05
APTT 34.6 Sec (23.4-35.0) 08/15/23 13:05
Sodium 140 mmol/L (135-145) 08/19/23 05:28
Potassium 3.8 mmol/L (3.5-5.1) 08/19/23 05:28
BUN 15 mg/dl (7-17) 08/19/23 05:28
Glucose 112 mg/dl (70-99) H 08/19/23 05:28
Calcium 8.6 mg/dl (8.4-10.2) 08/19/23 05:28
Phosphorus 3.8 mg/dl (2.5-4.5) 08/16/23 15:09
Patient Allergies
phenytoin [From Dilantin] Allergy (Unknown, Verified 09/22/21 10:59)
Unknown
ciprofloxacin [From Cipro] Allergy (Verified 09/22/21 10:59)
Unknown
Penicillins Allergy (Verified 09/22/21 10:59)
Unknown
vancomycin Allergy (Verified 09/22/21 10:59)
Vomiting
raw onions Allergy (Uncoded 09/22/21 10:59)
sensitivity
Review of Systems
-
Unable to obtain full review of systems at this time due to: Other (Confusion)
Physical Exam
-
General: Well Nourished and Comfortable
Eyes: No Ptosis
HEENT: Normocephalic
Neck: No Bruits Bilaterally
Respiratory: Clear to Auscultation
Cardiac: Regular Rhythm
GI: Normal Bowel Sounds
Skin: Unremarkable
Extremities: No Clubbing
Psych: Unremarkable
Extended Neurological Exam
Mood & Affect: Mood Unremarkable and Affect Unremarkable
Attention Span & Concentration: Awake, Alert and Interactive
Memory: Unremarkable
Tremor: Hand Tremor Absent
Involuntary Movement: None
Speech: Expressive Aphasia, Receptive Aphasia and Dysarthric
Cranial Nerve II: Left Eye: Pupillary Reactivity Unremarkable and Pupillary Size Unremarkable
Cranial Nerve II: Right Eye: Pupillary Reactivity Unremarkable and Pupillary Size Unremarkable
Cranial Nerves III, IV, : Extraocular Movement: Extraocular Movement Full in all Directions
Muscle Strength, Overall: Other (Generalized weakness 4/5 shoulder abduction hip flexion)
[2023-08-21] MEDS: LOVENOX 40 MG SC (17:58)
[2023-08-21] MEDS: APRESOLINE 5 MG IV (22:45)
[2023-08-22 03:27] VITALS: BP 169/88
[2023-08-22] MEDS: D5LR 1000 IV (03:40)
[2023-08-22 07:33] VITALS: BP 169/82
[2023-08-22] MEDS: DIPROSONE 0.05% 1 APPLIC TOPICAL ×2 (08:07→21:39)
[2023-08-22] MEDS: DECADRON 4 MG IV ×2 (08:07→21:38)
[2023-08-22] MEDS: BRIVIACT 25 MG IV ×2 (08:07→21:33)
[2023-08-22] MEDS: PEPCID 20 MG IV (08:08)
[2023-08-22] MEDS: NSS (PRESERVATIVE FREE) 8 ML IV (08:08)
[2023-08-22] MEDS: VIMPAT 200 MG IV ×2 (08:09→21:34)
[2023-08-22] MEDS: APRESOLINE 5 MG IV ×2 (08:30→23:35)
--- NOTE | 2023-08-22 11:10 | CM ---
Ambulance transport for 10 am tomorrow.
Ramp into home.
Family aware.
Plan: home on hospice tomorrow.
[2023-08-22 11:28] VITALS: BP 139/66
--- NOTE | 2023-08-22 11:57 | W.PN.HOSP.TC ---
Today's Communication/Plan
-
Home hospice in am
comfort feeding
IVF in the interim
Assessment / Plan
Assessment / Plan
Physical Exam
General: no respiratory distress. sleeping
HEENT: Atraumatic
Respiratory: not tachypneic
Cardiac: S1/S2
GI: Non Distended
Genito-urinary: No Bloody Urine or Vaughan
Musculoskeletal: No Clubbing, No Cyanosis and No Edema
Skin: No Jaundice
Neuro: sleeping
Psych: No Agitated
88yo female with PMH significant for prior aneurysm rupture with resultant seizure disorder and NPH issues requiring BROADCAST SYSTEMS ENGINEER shunt who presented to ED due to seizure and unresponsiveness
#Acute metabolic toxic encephalopathy due to seizure /unresponsiveness, now acute delirium
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
#Focal epilepsy
Patient was intubated for airway protection in the emergency room. No documented hypoxia or respiratory distress. Extubated 08/15.
EEG with continuous monitoring, no seizure activity
Supportive care with IV fluid, aspiration precautions
Normal TSH
Continue with lacosamide and brivaracetam. She received Benadryl. Ativan seemed to help with sedation but no confusion. Ordered oral risperidone but was dc when she developed rash. Her mentation is still not back to baseline and unable to safely
give oral pills. Will try IM Zyprexa ( low dose) as it comes as IM. Family agreed to use Anti-psychotic and to try to avoid Ativan.
Neurologist is following, c/w current regimen.
# Skin rash, c/w drug induced maculopapular rash
Hide current intravenous antiseizure medication are the same what she took at home. Additional medication was given as as needed could be the culprit or propofol. Cont decadron IV dose to twice daily no fever or hemodynamic instability noted.
#Acute on chronic Dysphagia
Initially was on regular diet but failed VSE and speech recs strict NPO
Cont antiepileptic IV meds for now
IVF
Speech evals daily
seems chronic issues-per 2 daughter patient has been coughing for sometime at home with meals.
d/w options for IVF with daily speech eval, vs. feeding tube. Family to decide. Comfort feeding then recs comfort care/Hospice.
DHT high risk pt wont tolerate and will pull it out.
Family to discuss with hospice and then leaning away from feeding tube. Family to discuss with patient spouse. They understand the concept of comfort feeding leading to high risk of pneumonia, hypoxemia and . Family wants to obtain further
information about hospice and would like patient to be transition home as they have care set up and would like to avoid SNF. Family has opted for hospice. Comfort feeding for now.
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
Patient has had history of hypothermia in the past
Continue with warming blanket as needed
#Essential hypertension
Keep normotensive. Add as needed hydralazine
#Hypothyroidism
- No changes intended
# Transaminitis likely secondary to chronic antiseizure medication
-Can trend for now.
# GI prophylaxis & DVT prophylaxis
# CODE STATUS -DNR
Discussed with daughters at bedside in details for prolonged period of time.
Dispo-home with VN. comfort feeding. Home hospice tomm.
Anticipated Discharge: Within 24 hours
Subjective/Interval History
-
Date of Service: August 22, 2023
awake
tolerated some puree diet
Objective Data
-
Vital Signs:
Vital Signs
Temp Pulse Resp BP Pulse Ox
97.6 F 62 17 139/66 94
08/22/23 11:28 08/22/23 11:28 08/22/23 11:28 08/22/23 11:28 08/22/23 11:28
I&O
08/21/23 08/22/23 08/23/23
06:59 06:59 06:59
Intake Total 240 / 240 660 / 660
Balance 240 / 240 660 / 660
--- NOTE | 2023-08-22 14:36 | PN.CDI ---
CDI
- -
CDI:
Physician Documentation Request
Admit Date: 08/15/23 11:36
Dear Doctor Ana Cristina,
Please review the following and provide your response in the progress notes.
Clinical Indicators:
Pt admitted with Seizure /Hypothermia
Documented per Nursing WOCN panel 08/18, Stage 2 pressure injury bilateral upper cheek .. treated with silicone border foam
Nutrition note 08/18 and 08/20, ' Skin: stage 2 bilateral upper cheek..'
Physician documentation of the type and location of wounds is required for compliant documentation. Based on the above clinical findings and your assessment, please provide the following in your progress note:
1. Location of the ulcer/wound, including laterality.
2. Type (etiology) of ulcer/wound:
- Pressure (decubitus) ulcer
- Non-pressure ulcer
- Other
Use of terms such as suspected, likely, concern for, or probable (associated with a specific diagnosis that is being evaluated, monitored, or treated as if it exists) are acceptable and can be coded in the inpatient setting, when documented at the
time of discharge.
Thank you,
Agatha Ortiz RN
CDI Specialist
[facility]
Please use your independent medical judgment in providing your response.
*Source: National Pressure Ulcer Advisory Panel (NPUAP)
[2023-08-22 16:06] VITALS: BP 147/75
[2023-08-22] MEDS: LOVENOX 40 MG SC (17:38)
[2023-08-22 23:59] VITALS: BP 166/74
[2023-08-23] MEDS: D5LR 1000 IV (00:39)
[2023-08-23 03:20] VITALS: BP 175/84
[2023-08-23] MEDS: APRESOLINE 5 MG IV ×2 (03:44→08:12)
[2023-08-23 07:28] VITALS: BP 158/74
[2023-08-23] MEDS: VIMPAT 200 MG IV (08:11)
[2023-08-23] MEDS: BRIVIACT 25 MG IV (08:12)
[2023-08-23] MEDS: DECADRON 4 MG IV (08:12)
[2023-08-23] MEDS: PEPCID 20 MG IV (08:13)
[2023-08-23] MEDS: NSS (PRESERVATIVE FREE) 8 ML IV (08:13)
[2023-08-23] MEDS: DIPROSONE 0.05% 1 APPLIC TOPICAL (08:15)
--- NOTE | 2023-08-23 09:41 | W.PN.HOSP.TC ---
Addendum entered and electronically signed by Jr De La Paz MD 08/24/23 15:52:
Stage 2 pressure injury bilateral upper cheek ?due to tape/intubation
Original Note:
Today's Communication/Plan
-
Home hopsice
Assessment / Plan
Assessment / Plan
Physical Exam
General: no respiratory distress. watching TV
HEENT: Atraumatic
Respiratory: not tachypneic
Cardiac: S1/S2
GI: Non Distended
Genito-urinary: No Bloody Urine or Vaughan
Musculoskeletal: No Clubbing, No Cyanosis and No Edema
Skin: No Jaundice
Neuro: sleeping
Psych: No Agitated
88yo female with PMH significant for prior aneurysm rupture with resultant seizure disorder and NPH issues requiring WHOLESALE BUYER shunt who presented to ED due to seizure and unresponsiveness
#Acute metabolic toxic encephalopathy due to seizure /unresponsiveness, now acute delirium
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
#Focal epilepsy
Patient was intubated for airway protection in the emergency room. No documented hypoxia or respiratory distress. Extubated 08/15.
EEG with continuous monitoring, no seizure activity
Supportive care with IV fluid, aspiration precautions
Normal TSH
Continue with lacosamide dose increased to 200mg BID (SECURITY TESTER 100MG/150QHS) and brivaracetam. She received Benadryl. Ativan seemed to help with sedation but no confusion. Ordered oral risperidone but was dc when she developed rash. Her mentation is
still not back to baseline and unable to safely give oral pills. Will try IM Zyprexa ( low dose) as it comes as IM. Family agreed to use Anti-psychotic and to try to avoid Ativan.
Neurologist is following, c/w current regimen.
# Skin rash, c/w drug induced maculopapular rash
Hide current intravenous antiseizure medication are the same what she took at home. Additional medication was given as as needed could be the culprit or propofol. Cont decadron IV dose to twice daily no fever or hemodynamic instability noted.
#Acute on chronic Dysphagia
Initially was on regular diet but failed VSE and speech recs strict NPO
IVF Dced
Speech evals daily
seems chronic issues-per 2 daughter patient has been coughing for sometime at home with meals.
d/w options for IVF with daily speech eval, vs. feeding tube. Family to decide. Comfort feeding then recs comfort care/Hospice.
DHT high risk pt wont tolerate and will pull it out.
Family opted for hospice with comfort feeding
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
Patient has had history of hypothermia in the past
Continue with warming blanket as needed
#Essential hypertension
Keep normotensive. Add as needed hydralazine
#Hypothyroidism
- No changes intended
# Transaminitis likely secondary to chronic antiseizure medication
-Can trend for now.
#DVt ppx-hospice
# CODE STATUS -DNR
Discussed with daughters at bedside in details for prolonged period of time on daily basis.
Dispo-home with VN. comfort feeding. Home hospice today.
More than 30 minutes spent in discharge including
Final examination of the patient
Summarizing hospital stay
Instructions for continuing care to all relevant caregivers
Preparation of discharge records, prescriptions, and referral forms
Total time spent (in minutes): 45
Anticipated Discharge: Today
Subjective/Interval History
-
Date of Service: August 23, 2023
watching tv
no overnight events
Objective Data
-
Vital Signs:
Vital Signs
Temp Pulse Resp BP Pulse Ox
97.3 F 68 18 158/74 96
08/23/23 07:28 08/23/23 07:28 08/23/23 07:28 08/23/23 07:28 08/23/23 07:28
I&O
06/08/23/23 08/24/23
06:59 06:59 06:59
Intake Total 660 / 660 1380 / 1380
Balance 660 / 660 1380 / 1380
--- NOTE | 2023-08-23 09:42 | W.DCSUMMARY ---
Discharge Summary
Discharge Data
Date of Admission: 08/15/23
Date of Discharge: 08/23/23
-
Pending Results: No
Hospital Course
88 Y female past medical history of hypertension, hypothyroidism, chronic hyponatremia, history of subarachnoid hemorrhage status post aneurysm rupture status post craniotomy status post RESIDENTIAL TREATMENT COUNSELOR shunt, history of subdural hematoma who is presenting with
unresponsiveness and seizures. Patient was intubated for airway protection in the emergency room. Subsequently patient was admitted to medical ICU. [facility] Plater and neurology was consulted. EEG with continuous monitoring. No seizure activity.
Supportive care with IV fluid was provided. Post extubation patient did well. Patient was able to be weaned off oxygenation. Patient was started on increased dose of Vimpat to 200 mg twice daily. Briviact was continued at similar home dose.
Patient was transferred out of the ICU to regular floors. Patient was agitated intermittently requiring medication. Status and restraints were weaned off. Patient was also found to have a rash which was seen drug-induced maculopapular rash and
was started on IV steroids. Patient was eval by speech. Patient underwent video swallow evaluation and it was noted that patient with severe aspiration and high risk of choking with solid food and aspiration of the food consistency. Patient
family did not want feeding tube. Multiple discussion was had with daughters who discussed with patient spouse. Family decided against feeding tube. Patient was evaluated multiple times by speech and recommended strict NPO's. Comfort feeding was
recommended. This was relayed to patient and daughters who opted for comfort measures and on hospice. Patient will be discharged home on hospice with comfort feeding. High risk of aspiration with hypoxemia pneumonia and . This was relayed
to patient daughter and they verbalized understanding and they wanted patient to be comfortable at home. Prolonged period of time was spent at bedside in discussion with patient daughters on daily basis.
Discharge Plan
-
Patient Disposition: Home with Hospice
Discharge Diagnosis/Procedures: Acute metabolic toxic encephalopathy due to seizure and no acute delirium
Skin rash
Acute on chronic dysphagia
Transaminitis
Condition: Serious
Other Services: Hospice
Referrals:
UNKNOWN,NO INTERVIEW [Family Provider] -
Prescriptions:
New
lacosamide [Vimpat] 10 mg/mL solution
200 mg PO BID 30 Days Qty: 1200 0RF
Continued
Briviact 25 mg Tablet
25 mg PO BID
Patient Comments:
filled on 08/01/23 at [facility] pharmacy for 180 tablets
latanoprost 0.005 % Drops
1 drp BOTH EYES HS
lorazepam 0.5 mg Tablet
0.5 mg PO DAILYPRN PRN (Reason: seizures)
Discontinued
docusate sodium 100 MG capsule
100 mg PO BID
trazodone 50 MG tablet
12.5 mg PO HS
metoprolol succinate 25 MG tablet extended release 24 hr
25 mg PO QPM
melatonin 3 mg Tablet
3 mg PO HS
lacosamide [Vimpat] 150 mg Tablet
150 mg PO HS
Patient Comments:
filled on 06/05/23 for 90 tablets at [facility] pharmacy
Zyrtec 10 mg Capsule
10 mg PO QPM
amlodipine 5 mg Tablet
5 mg PO DAILY
calcium carbonate [Calcium 500] 500 mg calcium (1,250 mg) Tablet
500 mg PO DAILY
fluticasone propionate [Flonase] 50 mcg/actuation [place],Suspension
1 spray INTRANASAL BID
lacosamide [Vimpat] 100 mg Tablet
100 mg PO DAILY
Patient Comments:
filled on 06/08/23 for 90 tablets at [facility] pharmacy
acetaminophen [Tylenol] 325 mg Tablet
650 mg PO Q6HPRN PRN (Reason: mild pain)
cefuroxime axetil 250 mg Tablet
250 mg PO BID
methenamine hippurate 1 gram Tablet
1 g PO BID
levothyroxine 50 mcg Tablet
50 mcg PO QPM
Premarin 0.625 mg/gram Cream
1 applic VAGINAL MOTH
sertraline 25 mg Tablet
25 mg PO DAILY
Discharge Orders:
Discharge Patient (As Directed); Ordered 08/23/23
Ordered By: Jr De La Paz
Discharge Date and Time
Discharge Date/Time: 08/23/23 10:22
Print Language: SPANISH
== END 2023-08-23 10:22 | disposition hospice, home (50) | DRG 100 ==
LOC: 4 WEST ACU 11:36
PROVIDERS: Nurse Practitioner Family; ADMITTING PHYSICIAN Internal Medicine; ATTENDING PHYSICIAN Hospitalist; CONSULT PHYSICIAN Student in an Organized Health Care Education/Training Program; EMERGENCY PHYSICIAN Emergency Medicine; OTHER PHYSICIAN Internal Medicine Critical Care Medicine
PROC: 5A1935Z Respiratory Ventilation, Less than 24 Consecutive Hours (ICD-10-PCS; 2023-08-15)
DX: G40.101 Localization-related (focal) (partial) symptomatic epilepsy and epileptic syndromes with simple partial seizures, not intractable, with status epilepticus (principal); G92.8 Other toxic encephalopathy; J96.92 Respiratory failure, unspecified with hypercapnia; E87.1 Hypo-osmolality and hyponatremia; F05 Delirium due to known physiological condition; I10 Essential (primary) hypertension; E03.9 Hypothyroidism, unspecified; Z66 Do not resuscitate; Z51.5 Encounter for palliative care; R68.0 Hypothermia, not associated with low environmental temperature; L89.812 Pressure ulcer of head, stage 2
CPT/HCPCS: 31500; 36600; 70450; 70496; 70498; 71045; 74230; 80048; 80053; 81003; 82248; 82805; 83735; 84100; 84443; 85025; 85027; 85610; 85730; 87070; 87071; 87186; 87205; 92526; 92610; 92611; 93005; 94002; 94003; 95714; 96361; 96374; 96375; 97116; 97163; 97167; 97530; 97535; 99285; C9254; J3480; Q9967